=== PATIENT | female | born 1950 | race Caucasian/White ===

== ENCOUNTER 2016-06-11 13:27 | Inpatient (IN) | payer OTHER ==
[~2016-06-11] VITALS: Ht 175.3 cm; Wt 79.2 kg
[2016-06-11 12:50] VITALS: BP 147/87; PULSE 67; RESP 20; TEMP 98.3; O2SAT 97
[2016-06-11 15:50] VITALS: BP 157/87; PULSE 68; RESP 20; TEMP 98.4; O2SAT 98
[2016-06-11] MEDS ORDERED: PRED20 PO (16:06)
[2016-06-11] MEDS ORDERED: PANT40TA3 PO (16:06)
[2016-06-11] MEDS ORDERED: ZOLP5TAB3 PO (16:06)
[2016-06-11] MEDS ORDERED: SULF500T3 PO (16:06)
[2016-06-11] MEDS ORDERED: LEVO50TA4 PO (16:06)
[2016-06-11] MEDS ORDERED: PERC5TAB12 PO (16:06)
[2016-06-11] MEDS ORDERED: VALA500T PO (16:06)
[2016-06-11] MEDS ORDERED: FURO20TA PO (16:06)
--- NOTE | 2016-06-11 16:56 | HHI.HP ---
HPI Service [facility] Hospitalists Primary Care Physician Unknown Admission Diagnosis Anemia, thrombocytopenia Diagnoses: (1) Thrombocytopenia (2) Anemia (3) Crohns disease (4) ARF (acute renal failure) Travel History International Travel<30 Days: No Contact w/Intl Traveler <30 Da: No History of Present Illness 66-year-old female with a medical history significant for Crohn's disease, thrombocytopenia, hypothyroidism who was initially admitted to [facility] and transferred to [place] due to insurance issue. The patient is seen in her room. In the background, she initially presented to [facility] due to swelling of bilateral upper and lower extremities. She saw her primary care physician prior to going to the emergency room and she was given Lasix and prednisone with no improvement in her symptoms. Apparently in the emergency room at the outside hospital, she was found to have a hemoglobin of 6.5, platelet counts of 6000 and a creatinine of 1.69. The patient was admitted for treatment and was followed by hematology, nephrology and GI. She reports that her anemia is new for her. She reports a history of thrombocytopenia, there has been mention of ITP in the past. She denies any recent bleeding. She underwent a bone marrow biopsy yesterday. Currently the patient states she is feeling well otherwise. Swelling has completely resolved. She is inquiring about when she will be able to go home. Review of Systems Constitutional: DENIES: Fever, Chills Eyes: DENIES: Blurred vision, Diplopia Ears, nose, mouth, throat: DENIES: Oral lesions, Throat pain Respiratory: DENIES: Cough, Shortness of breath Cardiovascular: DENIES: Chest pain, Palpitations Gastrointestinal: COMPLAINS OF: Diarrhea (chronic), DENIES: Black stools, Bloody stools Genitourinary: DENIES: Dysuria Musculoskeletal: DENIES: Joint pain, Muscle aches Integumentary: DENIES: Rash Neurologic: DENIES: Headache, Localized weakness Psychiatric: DENIES: Mood changes Past Family Social History Past Medical History Crohn's disease Hypothyroidism Thrombocytopenia, 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 Osteoarthritis History of diverticulitis Past Surgical History Facelift Tonsillectomy Hernia repair as a child Reported Medications Reported Meds & Active Scripts Active Reported Percocet (Oxycodone-Acetaminophen) 5-325 mg Tab 1 Tab PO Q4H PRN Valacyclovir (Valacyclovir HCl) 500 Mg Tab 500 Mg PO DAILY PRN Levothyroxine (Levothyroxine Sodium) 50 Mcg Tab 50 Mcg PO DAILY Zolpidem (Zolpidem Tartrate) 5 Mg Tab 5 Mg PO HS PRN Sulfasalazine 500 Mg Tab 500 Mg PO Q6H Furosemide 20 Mg Tab 10 Mg PO DAILY Pantoprazole (Pantoprazole Sodium) 40 Mg Tab 40 Mg PO DAILY PRN Prednisone 20 Mg Tab 20 Mg PO TID Allergies: Coded Allergies: Augmentin (Verified Allergy, Intermediate, 06/11/16) Rash Cipro (Verified Allergy, Intermediate, 06/11/16) Rash Family History Patient reports mother, cousin, and brother have history of low platelets. Possible ITP. Father is 91 years old. He has a history of COPD and atrial fibrillation. Mother from complication of unknown type of abdominal cancer. Social History Patient denies using tobacco. She admits to 1-2 glasses of wine daily. She denies illicit drug use. Physical Exam Physical Exam GENERAL: This is a well-nourished, well-developed patient, in no apparent distress. SKIN: No rashes, ecchymoses or lesions. Cool and dry. HEAD: Atraumatic. Normocephalic. No temporal or scalp tenderness. EYES: Pupils equal round and reactive. Extraocular motions intact. No scleral icterus. No injection or drainage. ENT: Nose without bleeding, purulent drainage or septal hematoma. Throat without erythema, tonsillar hypertrophy or exudate. Uvula midline. Airway patent. NECK: Trachea midline. No JVD or lymphadenopathy. Supple, nontender, no meningeal signs. CARDIOVASCULAR: Regular rate and rhythm without murmurs, gallops, or rubs. RESPIRATORY: Clear to auscultation. Breath sounds equal bilaterally. No wheezes , rales, or rhonchi. GASTROINTESTINAL: Abdomen soft, non-tender, nondistended. No hepato-splenomegaly , or palpable masses. No guarding. MUSCULOSKELETAL: Extremities without clubbing, cyanosis, or edema. No joint tenderness, effusion, or edema noted. No calf tenderness. Negative Homans sign bilaterally. NEUROLOGICAL: Awake and alert. Cranial nerves II through XII intact. Motor and sensory grossly within normal limits. Five out of 5 muscle strength in all muscle groups. Normal speech. Laboratory Labs from outside hospital today. WBC 8.3, hemoglobin 9.1, hematocrit 28.5, platelets 53,000 Sodium 143, potassium 4.8, chloride 109, glucose 153, BUN 28, creatinine 1.12, GFR 52 Assessment and Plan Problem List: (1) Crohns disease ICD Code: K50.90 Status: Acute (2) Thrombocytopenia ICD Code: D69.6 Status: Acute (3) ARF (acute renal failure) ICD Code: N17.9 Status: Acute (4) Anemia ICD Code: D64.9 Status: Acute Assessment and Plan 66-year-old female admitted at an outside hospital for bilateral upper and lower extremity swelling, anemia and thrombocytopenia. Patient is transferred to [place] due to insurance. Anemia, thrombocytopenia: The patient has been transfused 2 units of PRBC and 1 unit of platelets. Her hemoglobin and platelet counts have been improving. She was followed by hematology and has been on prednisone. A bone marrow biopsy was done yesterday. - Consult hematology here for further assistance. - Request records from [facility] regarding the bone marrow biopsy result once that becomes available. Crohn's disease: GI consult reviewed. Patient previously has been on mesalamine but that was discontinued due to cost. She has been on Sulfalazine. She requested to restarted on Mesalamine here which was preferred by her GI. This appear to be stable for now. Will start mesalamine 1000mg 4 times a day. She will need to follow up outpatient with her finger waver. Acute renal failure: Patient was followed by nephrology at [facility]. [facility] [employer] was thought to be due to aggressive diuresis. Renal function has been improving. She is currently on D5 half normal saline and sodium bicarbonate. She had mild hyperkalemia this is resolved. - Will finish the bag of fluid then discontinue. Follow-up BMP in a.m. Expect continuing improvement of renal function. If not will reconsult nephrology. Hypothyroidism: Continue Synthroid GI prophylaxis: PPI. DVT PPx: SCDs Physician Certification 2 Midnight Certification Type: Admission for Inpatient Services Order for Inpatient Services The services are ordered in accordance with Medicare regulations or non- Medicare payer requirements, as applicable. In the case of services not specified as inpatient-only, they are appropriately provided as inpatient services in accordance with the 2-midnight benchmark. Estimated LOS (days): 2 days is the estimated time the patient will need to remain in the hospital, assuming treatment plan goals are met and no additional complications. Post-Hospital Plan: Home Sj Kc MD Jun 11, 2016 16:56
[2016-06-11] MEDS ORDERED: ACETAMINOPHEN 325 MG TAB PO PRN (18:30)
[2016-06-11] MEDS ORDERED: SODIUM CHLORIDE 0.9% FLUSH 5 ML FLUSH FLUSH PRN (18:30)
[2016-06-11] MEDS ORDERED: PANTOPRAZOLE SOD 40 MG DELAYED RELEASE TAB PO PRN (18:30)
[2016-06-11] MEDS ORDERED: NALOXONE HCL 0.4 MG/ML AMP IV PRN (18:30)
[2016-06-11] MEDS ORDERED: ONDANSETRON HCL 4 MG/2 ML VIAL IVP PRN (18:30)
[2016-06-11 20:00] VITALS: BP 148/86; PULSE 74; RESP 16; TEMP 97; O2SAT 95
[2016-06-11 21:11] LABS: MEAN CELL VOLUME 89.6 FL (80.0-100.0); MEAN CORPUSCULAR HEMOGLOBIN 31.3 PG (27.0-34.0); PLATELET COUNT 33 TH/MM3 (150-450); RED BLOOD COUNT 2.67 MIL/MM3 (4.00-5.30); RED CELL DISTRIBUTION WIDTH 19.4 % (11.6-17.2); WHITE BLOOD COUNT 8.5 TH/MM3 (4.0-11.0)
[2016-06-11 21:26] LABS: HEMO FLAGS AUTO DIFF
[2016-06-11 21:36] LABS: BICARBONATE 23.3 MEQ/L (21.0-32.0); CALCIUM-PROTEIN CORRECTED 8.2 MG/DL (8.5-10.1); TOTAL BILIRUBIN ADULT 0.4 MG/DL (0.2-1.0)
[2016-06-11 22:06] LABS: CORRECTED NUCLEATED RBC 1 /100 WBC (0-0); EOSINOPHILS 1 % (0-4); NEUTROPHIL # MANUAL DIFF 4.7 TH/MM3 (1.8-7.7); POLYS (SEG NEUTROPHILS) 55 % (16-70); WBC DIFF SAMPLE 100
[2016-06-11 22:07] LABS: HELMET CELLS 1+ (NORMAL); KERATOCYTES OCC (NORMAL); LDH SERUM 269 U/L (84-246); PLATELET ESTIMATE SMEAR LOW (NORMAL); PLATELET MORPHOLOGY ENLARGED (NORMAL); SCAN/DIFF FINAL DIFF MANUAL; TOTAL PROTEIN SPE 5.6 GM/DL (6.0-7.6); TRANSFERRIN IRON PROFILE 144 MG/DL (200-360)
[2016-06-11] MEDS: SODIUM CHLORIDE 0.9% FLUSH 5 ML FLUSH FLUSH SCH (22:27)
[2016-06-11] MEDS: ZOLPIDEM TARTRATE 5 MG TAB PO PRN (22:27)
[2016-06-11] MEDS: MESALAMINE 250 MG CAP PO SCH (22:27)
[2016-06-12] VITALS (7 sets, daily range): BP systolic 157–183; BP diastolic 75–96; PULSE 66–79; RESP 16–20; TEMP 97.9–99.8; O2SAT 95–100
--- NOTE | 2016-06-12 | MB ---
cc: CRISTO VITALE DATE OF : 1950 DATE OF CONSULTATION: 06/11/2016 REASON FOR CONSULTATION: Anemia and thrombocytopenia. CHIEF COMPLAINT: Generalized weakness. HISTORY OF PRESENT ILLNESS: This is a 66 year-old female with a past medical history of chronic thrombocytopenia, Crohn's disease, hypothyroidism, and osteoarthritis, who was transferred from [facility] to [place]. She had presented to the [facility] with progressive weakness and also bilateral upper and lower extremity swelling. She was found to be severely anemic with a hemoglobin of 6.5 and her platelet count was 6000. She also was in acute kidney failure with a creatinine of 1.69. The patient has a longstanding history of thrombocytopenia since she was a child. 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 There was also a diagnosis of ITP made at some point. According to the patient she has responded to platelet transfusions in the past. She does have splenomegaly. Her baseline platelet count is 15,000. She has never had any bleeding in the past. She has never required any blood transfusion in the past except recently at [facility]. She has never been anemic so the anemia is new. She does have significant history of Crohn's disease. She was previously on sulfasalazine which was stopped a few weeks ago. She takes Meloxicam on a daily basis. This was stopped on the . Her primary care physician checked her stools for blood approximately a week ago and according to the patient this was negative. She denies any constitutional B symptoms. She does not have any night sweats or fevers. She does not have any lymphadenopathy. She denies any bright red blood per rectum or melena. No hematuria. She does not have any petechiae or bruising. The patient was seen by final inspector balance wheel at [facility] and she has undergone bone marrow biopsy on 06/10/2016. I do not have the results of this biopsy. I suspect this will take several days to resolved. REVIEW OF SYSTEMS A comprehensive 14-point review of systems was completed which is negative except as described in the HPI. PAST MEDICAL HISTORY Chronic thrombocytopenia, Crohn disease, hypothyroidism, osteoarthritis, history of diverticulitis. PAST SURGICAL HISTORY Facelift, tonsillectomy, hernia repair as a child, bone marrow biopsy. MEDICATIONS 1. Percocet 5/325 one tablet p.o. q4 hours p.r.n. 2. Valacyclovir 500 mg one tablet p.o. daily. 3. Levothyroxine 50 microgram one tablet p.o. daily. 4. Zolpidem 5 milligrams one tablet p.o. q hs p.r.n. 5. Sulfasalazine 500 mg one tablet p.o. q.6 hours. 6. Furosemide 10 mg one tablet p.o. daily. 7. Pantoprazole 40 mg one tablet p.o. daily. 8. Prednisone 20 mg one tablet p.o. t.i.d. ALLERGIES She is allergic to AUGMENTIN AND CIPRO. FAMILY HISTORY: Significant for low platelets. Her brother had low platelets. Mother of unknown type of abdominal cancer. SOCIAL HISTORY: She denies smoking cigarettes. She drinks one to two glasses of wine on a daily basis. She denies any illicit drug use. PHYSICAL EXAMINATION: Vital signs: Blood pressure is 116/72, pulse is in the 70s, temperature is 97.8, respiratory rate is 14. General: Well-developed, well-nourished female in no apparent distress. HEENT: Pupils are equal, round, reactive to light. EOMI. No oral thrush. No oral lesions. Neck: Supple. No JVD, no bruits. No lymphadenopathy. Chest is clear to auscultation bilaterally. Cardiac: S1-S2 regular rhythm. Abdomen is soft, nontender, nondistended. Bowel sounds are present. Extremities: Without any edema, erythema or cyanosis. Skin: Without any petechiae, lesion or bruises. Neuro: No focal deficits. Psychiatric: Mood and affect is appropriate. Lymph node exam was completed. No supraclavicular, axillary, epitrochlear or inguinal lymphadenopathy on exam. No axillary lymphadenopathy. LABORATORY DATA: From the outside hospital today, WBC is 8.3, hemoglobin is 9.1, platelet count is 53,000. Sodium is 143, potassium 4.8, chloride 109, creatinine is 1.12. GFR is 52. 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 She was found to be severely anemic and thrombocytopenic. She was subsequently transferred to [place] due to insurance issues. 1. Severe anemia. She has required blood transfusion. She was given two units of packed red blood cells. It is unclear what type of GI workup she had at [facility]. We need to make sure that she is not having a GI bleed. I will order a stool hemoccult test while she is here. Will try to obtain records from [facility]. Apparently she was seen by a GI physician. We will obtain anemia studies. Check B12 and folate, check LDH and haptoglobin, will check a direct Capri test. I will follow up with the bone marrow biopsy results. 2. Thrombocytopenia. 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 She tells me that she was responsive to steroids in the past. She does have splenomegaly. We will obtain an abdominal ultrasound to assess her spleen, again I will review the bone marrow biopsy since that will provide us with the information whether there is an intrinsic bone marrow process that is causing her platelet counts to be low. This does not appear to be TTP or DIC. I will check her fibrinogen levels. 3. Crohn disease. She was on mesalamine which was discontinued. She was also on sulfasalazine. She is now back on mesalamine again at 1000 mg four times a day. She will follow up with her customer marketing assistant. 4. Acute renal failure. Her kidney function has improved with hydration. 5. Hypothyroidism. Check TSH levels. Continue Synthroid. Thank you for allowing me to participate in the care of this patient. If this patient remains medically stable she can be discharged home and I will follow up in my clinic. MD GLORIA Aaron/COURTNEY /7:36 PM /11:39 PM
[2016-06-12] MEDS: LEVOTHYROXINE SODIUM 50 MCG TAB PO SCH (04:43)
[2016-06-12] MEDS: PANTOPRAZOLE SOD 40 MG DELAYED RELEASE TAB PO SCH (08:21)
[2016-06-12] MEDS: FOLIC ACID 1 MG TAB PO SCH (08:21)
[2016-06-12] MEDS: SODIUM CHLORIDE 0.9% FLUSH 5 ML FLUSH FLUSH SCH ×3 (08:22→22:20)
[2016-06-12] MEDS: MESALAMINE 250 MG CAP PO SCH ×4 (08:22→20:55)
[2016-06-12 08:44] LABS: HEMATOCRIT 25.9 % (35.0-46.0); MEAN CELL VOLUME 90.3 FL (80.0-100.0); MEAN CORPUSCULAR HEMOGLOBIN 30.9 PG (27.0-34.0); MEAN CORPUSCULAR HGB CONC 34.2 % (32.0-36.0); PLATELET COUNT 23 TH/MM3 (150-450); RED BLOOD COUNT 2.86 MIL/MM3 (4.00-5.30); RED CELL DISTRIBUTION WIDTH 19.2 % (11.6-17.2); WHITE BLOOD COUNT 5.8 TH/MM3 (4.0-11.0)
[2016-06-12] MEDS ORDERED: traMADol HCL 50 MG TAB PO PRN (09:00)
[2016-06-12 09:10] LABS: ALKALINE PHOSPHATASE 47 U/L (45-117); ALT (GPT) 12 U/L (10-53); ANION GAP 8 MEQ/L (5-15); AST (GOT) 10 U/L (15-37); BICARBONATE 23.4 MEQ/L (21.0-32.0); BLOOD UREA NITROGEN 25 MG/DL (7-18); CHLORIDE 112 MEQ/L (98-107); GLOMERULAR FILTRATION RATE 48 ML/MIN (>89); SODIUM (NA) 143 MEQ/L (136-145); TOTAL BILIRUBIN ADULT 0.5 MG/DL (0.2-1.0)
[2016-06-12 09:32] LABS: HEMO FLAGS AUTO DIFF
[2016-06-12 09:35] LABS: BANDS 3 % (0-6); BASOPHILS 1 % (0-2); EOSINOPHILS 1 % (0-4); NEUTROPHIL # MANUAL DIFF 2.2 TH/MM3 (1.8-7.7); PLATELET ESTIMATE SMEAR LOW (NORMAL); PLATELET MORPHOLOGY ENLARGED (NORMAL); POLYS (SEG NEUTROPHILS) 35 % (16-70); WBC DIFF SAMPLE 100
[2016-06-12 09:36] LABS: HELMET CELLS OCC (NORMAL); KERATOCYTES OCC (NORMAL)
[2016-06-12 09:37] LABS: SCAN/DIFF FINAL DIFF MANUAL
[2016-06-12] MEDS: cloNIDine HCL 0.1 MG TAB PO PRN (12:20)
--- NOTE | 2016-06-12 12:48 | HHI.DS ---
Discharge Summary Admission Date Jun 11, 2016 at 13:27 Discharge Date: Jun 12, 2016 Admitting Diagnosis Anemia, thrombocytopenia (1) Crohns disease ICD Code: K50.90 (2) Thrombocytopenia ICD Code: D69.6 (3) ARF (acute renal failure) ICD Code: N17.9 (4) Anemia ICD Code: D64.9 Procedures None in this Hospital but had bone marrow biopsy prior to coming to [place] Brief History - From Admission 66-year-old female with a medical history significant for Crohn's disease, thrombocytopenia, hypothyroidism who was initially admitted to [facility] and transferred to [place] due to insurance issue. The patient is seen in her room. In the background, she initially presented to [facility] due to swelling of bilateral upper and lower extremities. She saw her primary care physician prior to going to the emergency room and she was given Lasix and prednisone with no improvement in her symptoms. Apparently in the emergency room at the outside hospital, she was found to have a hemoglobin of 6.5, platelet counts of 6000 and a creatinine of 1.69. The patient was admitted for treatment and was followed by hematology, nephrology and GI. She reports that her anemia is new for her. She reports a history of thrombocytopenia, there has been mention of ITP in the past. She denies any recent bleeding. She underwent a bone marrow biopsy yesterday. Currently the patient states she is feeling well otherwise. Swelling has completely resolved. She is inquiring about when she will be able to go home. CBC/BMP: 06/12/16 0810 06/12/16 0810 Significant Findings Laboratory Tests Test 06/11/16 06/12/16 20:50 08:10 Red Blood Count 2.67 MIL/MM3 2.86 MIL/MM3 (4.00-5.30) (4.00-5.30) Hemoglobin 8.4 GM/DL 8.8 GM/DL (11.6-15.3) (11.6-15.3) Hematocrit 24.0 % 25.9 % (35.0-46.0) (35.0-46.0) Red Cell Distribution Width 19.4 % 19.2 % (11.6-17.2) (11.6-17.2) Platelet Count 33 TH/MM3 23 TH/MM3 (150-450) (150-450) Monocytes % 23 % (0-8) 28 % (0-8) Nucleated Red Blood Cells 1 /100 WBC (0-0) Platelet Estimate LOW (NORMAL) LOW (NORMAL) Platelet Morphology Comment ENLARGED ENLARGED (NORMAL) (NORMAL) Helmet Cells 1+ (NORMAL) Keratocytes OCC (NORMAL) OCC (NORMAL) Chloride Level 112 MEQ/L 112 MEQ/L (98-107) (98-107) Blood Urea Nitrogen 27 MG/DL (7-18) 25 MG/DL (7-18) Creatinine 1.36 MG/DL 1.13 MG/DL (0.50-1.00) (0.50-1.00) Estimat Glomerular Filtration 39 ML/MIN (>89) 48 ML/MIN (>89) Rate Random Glucose 112 MG/DL (74-106) Calcium Level 7.4 MG/DL 7.6 MG/DL (8.5-10.1) (8.5-10.1) Protein Corrected Calcium 8.2 MG/DL (8.5-10.1) Iron Level 46 MCG/DL (50-170) Total Iron Binding Capacity 202 MCG/DL (250-450) Transferrin 144 MG/DL (213-418) Aspartate Amino Transf 11 U/L (15-37) 10 U/L (15-37) (AST/SGOT) Lactate Dehydrogenase 269 U/L (84-246) Total Protein 5.6 GM/DL 5.6 GM/DL (6.0-7.6) (6.4-8.2) Albumin 2.4 GM/DL 2.3 GM/DL (3.4-5.0) (3.4-5.0) Vitamin B12 Level 1113 PG/ML (193-986) Haptoglobin 25 MG/DL (30-200) Sj Kc MD Jun 12, 2016 12:48
[2016-06-12] MEDS ORDERED: ULTR50TA5 PO (12:59)
[2016-06-12] MEDS ORDERED: MESA250 PO (12:59)
[2016-06-12] MEDS ORDERED: PANT40TA3 PO ×2 (12:59)
[2016-06-12] MEDS ORDERED: CLON.1 PO (13:00)
--- NOTE | 2016-06-12 13:00 | RADRPT ---
EXAM DATE/TIME: 06/12/2016 09:51 [place] COMPARISON: No previous studies available for comparison. INDICATIONS : Splenomegaly. Thrombocytopenia. MEDICAL HISTORY : Hypertension. Arthritis. Crohn disease. Inflammatory bowel disease. Renal failure. Anemia. Thromboc ytopenia. SURGICAL HISTORY : Tonsillectomy. Hiatal hernia repair. Face lift. ENCOUNTER: Initial ACUITY: 1 day PAIN SCORE: 4/10 LOCATION: Bilateral upper quadrant MEASUREMENTS: LIVER: 19.7 cm length COMMON DUCT: 6 mm RIGHT KIDNEY: 13.0 x 6.6 x 5.7 cm LEFT KIDNEY: 13.8 x 6.3 x 6.3 cm SPLEEN: 16.8 x 15.3 x 7.1 cm length AORTA: 2.2cm maximal FINDINGS: LIVER: Normal echotexture without focal lesion or ductal dilatation. COMMON DUCT: No intraluminal mass or stone visualized. GALLBLADDER: Contains no stones, demonstrates no wall thickening or pericholecystic fluid. There is sludge within the gallbladder. PANCREAS: The visualized portions are within normal limits. RIGHT KIDNEY: No hydronephrosis, stone or mass.There is an anechoic avascular lesion representing a simple cyst in the lower pole collecting system measuring up to 2.2 cm. There is trace fluid in Morison's pouch. LEFT KIDNEY: There is mild left hydronephrosis. No mass or stone is visualized. SPLEEN: There is a mildly echogenic mass measuring 5.0 x 4.8 cm in the central spleen. Centrally the appearan ce of cystic and overall demonstrates no increased blood flow. There is trace perisplenic free fluid. AORTA: Non aneurysmal. IVC: Within normal limits. Small bilateral pleural effusions are visualized. CONCLUSION: 1. Splenomegaly. Additionally, there is a partially solid and cystic appearing mass in the central sp rob measuring up to 5 cm. Differential diagnostic considerations are broad. Suggest correlating with any prior imaging studies that could determine chronicity of this finding. Although most incidentall y detected splenic lesions are benign, given the splenomegaly and the appearance is ideally should be further characterized with MRI with and without intravenous contrast at some point if not already pe rformed. 2. Small bilateral pleural pleural effusions and trace ascites in the upper abdomen. 3. Mild left hydronephrosis from uncertain etiology. Charli Roman MD on June 12, 2016 at 12:54 Board Certified Radiologist. This report was verified electronically.
--- NOTE | 2016-06-12 13:17 | PD.ONC.PN ---
Objective Data Date Time Temp Pulse Resp B/P Pulse Ox O2 Delivery O2 Flow Rate FiO2 06/12/16 11:50 99.0 79 20 183/96 97 06/12/16 07:50 98.8 74 20 159/80 98 06/12/16 04:00 97.9 66 18 166/84 100 06/12/16 01:59 16 06/12/16 00:00 98.5 76 18 157/75 95 06/11/16 20:00 97.0 74 16 148/86 95 06/11/16 15:50 98.4 68 20 157/87 98 06/12/16 06/12/16 06/12/16 07:00 15:00 23:00 Intake Total 240 ml Balance 240 ml Result Diagram: 06/12/16 0810 06/12/16 0810 Laboratory Results Laboratory Tests Test 06/11/16 06/11/16 06/12/16 20:50 20:55 08:10 White Blood Count 8.5 TH/MM3 5.8 TH/MM3 Red Blood Count 2.67 MIL/MM3 2.86 MIL/MM3 Hemoglobin 8.4 GM/DL 8.8 GM/DL Hematocrit 24.0 % 25.9 % Mean Corpuscular Volume 89.6 FL 90.3 FL Mean Corpuscular Hemoglobin 31.3 PG 30.9 PG Mean Corpuscular Hemoglobin 35.0 % 34.2 % Concent Red Cell Distribution Width 19.4 % 19.2 % Platelet Count 33 TH/MM3 23 TH/MM3 Mean Platelet Volume 8.7 FL 8.1 FL Neutrophils (%) (Auto) % % Lymphocytes (%) (Auto) % % Monocytes (%) (Auto) % % Eosinophils (%) (Auto) % % Basophils (%) (Auto) % % Neutrophils # (Auto) TH/MM3 TH/MM3 Lymphocytes # (Auto) TH/MM3 TH/MM3 Monocytes # (Auto) TH/MM3 TH/MM3 Eosinophils # (Auto) TH/MM3 TH/MM3 Basophils # (Auto) TH/MM3 TH/MM3 CBC Comment AUTO DIFF AUTO DIFF Differential Total Cells 100 100 Counted Neutrophils % (Manual) 55 % 35 % Lymphocytes % 21 % 32 % Monocytes % 23 % 28 % Eosinophils % 1 % 1 % Neutrophils # (Manual) 4.7 TH/MM3 2.2 TH/MM3 Nucleated Red Blood Cells 1 /100 WBC Differential Comment FINAL DIFF FINAL DIFF MANUAL MANUAL Platelet Estimate LOW LOW Platelet Morphology Comment ENLARGED ENLARGED Helmet Cells 1+ OCC Keratocytes OCC OCC Fibrinogen 227 mg/dL Sodium Level 142 MEQ/L 143 MEQ/L Potassium Level 4.0 MEQ/L 4.0 MEQ/L Chloride Level 112 MEQ/L 112 MEQ/L Carbon Dioxide Level 23.3 MEQ/L 23.4 MEQ/L Anion Gap 7 MEQ/L 8 MEQ/L Blood Urea Nitrogen 27 MG/DL 25 MG/DL Creatinine 1.36 MG/DL 1.13 MG/DL Estimat Glomerular Filtration 39 ML/MIN 48 ML/MIN Rate Random Glucose 112 MG/DL 85 MG/DL Calcium Level 7.4 MG/DL 7.6 MG/DL Protein Corrected Calcium 8.2 MG/DL Iron Level 46 MCG/DL Total Iron Binding Capacity 202 MCG/DL Percent Iron Saturation 22.8 % Transferrin 144 MG/DL Total Bilirubin 0.4 MG/DL 0.5 MG/DL Aspartate Amino Transf 11 U/L 10 U/L (AST/SGOT) Alanine Aminotransferase 14 U/L 12 U/L (ALT/SGPT) Alkaline Phosphatase 56 U/L 47 U/L Lactate Dehydrogenase 269 U/L Total Protein 5.6 GM/DL 5.6 GM/DL Albumin 2.4 GM/DL 2.3 GM/DL Vitamin B12 Level 1113 PG/ML Thyroid Stimulating Hormone 3.270 uIU/ML 3rd Gen Blood Type A POSITIVE Direct Antiglobulin Test STRONGLY (Capri) POSITIVE Haptoglobin 25 MG/DL Antibody Identification PANAGGLUTININ Band Neutrophils % 3 % Basophils % 1 % Blood Smear Pathologist Review Imaging Studies Last 24 hours Impressions Abdomen Ultrasound 06/12/16 0000 Signed Impressions: Service Date/Time: May 09:51 - CONCLUSION: 1. Splenomegaly. Additionally, there is a partially solid and cystic appearing mass in the central spleen measuring up to 5 cm. Differential diagnostic considerations are broad. Suggest correlating with any prior imaging studies that could determine chronicity of this finding. Although most incidentally detected splenic lesions are benign, given the splenomegaly and the appearance is ideally should be further characterized with MRI with and without intravenous contrast at some point if not already performed. 2. Small bilateral pleural pleural effusions and trace ascites in the upper abdomen. 3. Mild left hydronephrosis from uncertain etiology. Charli Roman MD Administered Medications Medications (Trade) Dose Ordered Sig/Angela Route PRN Reason Start Time Stop Time Status Last Admin Dose Admin Levothyroxine Sodium (Synthroid) 50 mcg DAILY@0600 PO 06/12/16 06:00 06/12/16 04:43 Folic Acid (Folate) 1 mg DAILY PO 06/12/16 09:00 06/12/16 08:21 Pantoprazole Sodium (Protonix) 40 mg DAILY PO 06/12/16 09:00 06/12/16 08:21 Mesalamine (Pentasa Sr) 1,000 mg QID PO 06/11/16 21:00 06/12/16 12:20 IV Flush (NS Flush) 2 ml BID FLUSH 06/11/16 21:00 06/12/16 08:22 Zolpidem Tartrate (Ambien) 5 mg HS PRN PO INSOMNIA 06/11/16 18:30 06/11/16 22:27 Tramadol HCl (Ultram) 50 mg Q12H PRN PO PAIN GREATER THAN 5 06/12/16 09:00 06/12/16 09:00 Clonidine (Catapres) 0.1 mg Q6H PRN PO SBP> OR = 180, DBP> OR = 100 06/12/16 09:00 06/12/16 12:20 Objective Remarks GENERAL: Well-nourished, well-developed patient. SKIN: Warm and dry. HEAD: Normocephalic. EYES: No scleral icterus. No injection or drainage. NECK: Supple, trachea midline. No JVD or lymphadenopathy. LYMPHATIC: No adenopathy. CARDIOVASCULAR: Regular rate and rhythm without murmurs. RESPIRATORY: Breath sounds equal bilaterally. No accessory muscle use. GASTROINTESTINAL: Abdomen soft, non-tender, nondistended. EXTREMITIES: No cyanosis, or edema. MUSCULOSKELETAL: Adequate muscle tone. NEUROLOGICAL: No obvious focal deficit. Awake, alert, and oriented x3. PSYCHIATRIC: Appropriate mood and affect; insight and judgment normal. Farrukh Eagle MD Jun 12, 2016 13:17
[2016-06-12] MEDS ORDERED: methylPREDNISolone SOD SUCC 125 MG/2 ML VIAL IV PUSH ONE (13:30)
--- NOTE | 2016-06-12 13:34 | HHI.PR ---
Subjective Remarks Patient reports that she is feeling great. She inquired about when she can go home. No bleeding. She has some discomfort over the left upper back. Tramadol help. Objective Vitals Vital Signs Date Time Temp Pulse Resp B/P Pulse Ox O2 Delivery O2 Flow Rate FiO2 06/12/16 11:50 99.0 79 20 183/96 97 06/12/16 07:50 98.8 74 20 159/80 98 06/12/16 04:00 97.9 66 18 166/84 100 06/12/16 01:59 16 06/12/16 00:00 98.5 76 18 157/75 95 06/11/16 20:00 97.0 74 16 148/86 95 06/11/16 15:50 98.4 68 20 157/87 98 I/O 06/11/16 06/11/16 06/11/16 06/12/16 06/12/16 06/12/16 07:00 15:00 23:00 07:00 15:00 23:00 Intake Total 360 ml 240 ml Balance 360 ml 240 ml Intake Oral 360 ml 240 ml # Voids 1 2 # Bowel Movements 0 0 Result Diagram: 06/12/16 0810 06/12/16 0810 Imaging Last Impressions Abdomen Ultrasound 06/12/16 0000 Signed Impressions: Service Date/Time: May 09:51 - CONCLUSION: 1. Splenomegaly. Additionally, there is a partially solid and cystic appearing mass in the central spleen measuring up to 5 cm. Differential diagnostic considerations are broad. Suggest correlating with any prior imaging studies that could determine chronicity of this finding. Although most incidentally detected splenic lesions are benign, given the splenomegaly and the appearance is ideally should be further characterized with MRI with and without intravenous contrast at some point if not already performed. 2. Small bilateral pleural pleural effusions and trace ascites in the upper abdomen. 3. Mild left hydronephrosis from uncertain etiology. Charli Roman MD Objective Remarks GENERAL: This is a well-nourished, well-developed patient, in no apparent distress. CARDIOVASCULAR: Normal rate and regular rhythm without murmurs, gallops, or rubs. RESPIRATORY: Good respiratory efforts. Breath sounds equal and clear to auscultation bilaterally. GASTROINTESTINAL: Abdomen soft, non-tender, non-distended. Normal active bowel sounds MUSCULOSKELETAL: Extremities without cyanosis, or edema. NEURO: Alert & Oriented x4 to person, place, time, situation. Moves all ext x4 PSYCH: Appropriate mood and affect. Procedures None in this Hospital but had bone marrow biopsy prior to coming to [place] A/P Problem List: (1) Crohns disease ICD Code: K50.90 Status: Acute (2) Thrombocytopenia ICD Code: D69.6 Status: Acute (3) ARF (acute renal failure) ICD Code: N17.9 Status: Acute (4) Anemia ICD Code: D64.9 Status: Acute Assessment and Plan 66-year-old female initially admitted at an outside hospital for bilateral upper and lower extremity swelling, anemia and thrombocytopenia. Patient is transferred to [place] due to insurance. Anemia, thrombocytopenia: The patient has been transfused 2 units of PRBC and 1 unit of platelets. Her hemoglobin improved but her platelet count or decreasing again. She was followed by hematology and has been on prednisone. A bone marrow biopsy was done on 06/10/16 -Appreciate suction operator, Dr. Eagle following. Yousif positive and LDH is elevated. Concern for a hemolytic process. Patient will be restarted on steroid per hematology. She was on prednisone 20 mg twice daily at the outside hospital. Splenomegaly: May be contributing to the findings above. Abdominal ultrasound here revealed a 5 cm cystic mass. This was also identified at the outside hospital and MRI or CT was recommended. CT at the outside hospital did not comment much on the spleen. Therefore we will obtain an MRI to better characterize this. Crohn's disease: GI consult reviewed. Patient previously has been on mesalamine but that was discontinued due to cost. She has been on Sulfalazine. She requested to restarted on Mesalamine here which was preferred by her GI. This appear to be stable for now. Continue mesalamine 1000mg 4 times a day. Hemoccult from the outside hospital has been negative. This has been reordered here to ensure no GI bleeding. 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 Acute renal failure: Patient was followed by nephrology at [facility]. MITRA was thought to be due to aggressive diuresis. Renal function has been improving. Follow-up BMP in a.m. Expect continuing improvement of renal function. If not will reconsult nephrology. Hypothyroidism: Continue Synthroid GI prophylaxis: PPI. DVT PPx: SCDs Rimpel,Ricardy MD Jun 12, 2016 13:34
--- NOTE | 2016-06-12 13:43 | PD.ONC.PN ---
Subjective Subjective Remarks Afebrile overnight. Patient resting comfortably without complaint. No bleeding or oozing. Objective Data Date Time Temp Pulse Resp B/P Pulse Ox O2 Delivery O2 Flow Rate FiO2 06/12/16 11:50 99.0 79 20 183/96 97 06/12/16 07:50 98.8 74 20 159/80 98 06/12/16 04:00 97.9 66 18 166/84 100 06/12/16 01:59 16 06/12/16 00:00 98.5 76 18 157/75 95 06/11/16 20:00 97.0 74 16 148/86 95 06/11/16 15:50 98.4 68 20 157/87 98 06/12/16 06/12/16 06/12/16 07:00 15:00 23:00 Intake Total 240 ml Balance 240 ml Result Diagram: 06/12/16 0810 06/12/16 0810 Laboratory Results Laboratory Tests Test 06/11/16 06/11/16 06/12/16 20:50 20:55 08:10 White Blood Count 8.5 TH/MM3 5.8 TH/MM3 Red Blood Count 2.67 MIL/MM3 2.86 MIL/MM3 Hemoglobin 8.4 GM/DL 8.8 GM/DL Hematocrit 24.0 % 25.9 % Mean Corpuscular Volume 89.6 FL 90.3 FL Mean Corpuscular Hemoglobin 31.3 PG 30.9 PG Mean Corpuscular Hemoglobin 35.0 % 34.2 % Concent Red Cell Distribution Width 19.4 % 19.2 % Platelet Count 33 TH/MM3 23 TH/MM3 Mean Platelet Volume 8.7 FL 8.1 FL Neutrophils (%) (Auto) % % Lymphocytes (%) (Auto) % % Monocytes (%) (Auto) % % Eosinophils (%) (Auto) % % Basophils (%) (Auto) % % Neutrophils # (Auto) TH/MM3 TH/MM3 Lymphocytes # (Auto) TH/MM3 TH/MM3 Monocytes # (Auto) TH/MM3 TH/MM3 Eosinophils # (Auto) TH/MM3 TH/MM3 Basophils # (Auto) TH/MM3 TH/MM3 CBC Comment AUTO DIFF AUTO DIFF Differential Total Cells 100 100 Counted Neutrophils % (Manual) 55 % 35 % Lymphocytes % 21 % 32 % Monocytes % 23 % 28 % Eosinophils % 1 % 1 % Neutrophils # (Manual) 4.7 TH/MM3 2.2 TH/MM3 Nucleated Red Blood Cells 1 /100 WBC Differential Comment FINAL DIFF FINAL DIFF MANUAL MANUAL Platelet Estimate LOW LOW Platelet Morphology Comment ENLARGED ENLARGED Helmet Cells 1+ OCC Keratocytes OCC OCC Fibrinogen 227 mg/dL Sodium Level 142 MEQ/L 143 MEQ/L Potassium Level 4.0 MEQ/L 4.0 MEQ/L Chloride Level 112 MEQ/L 112 MEQ/L Carbon Dioxide Level 23.3 MEQ/L 23.4 MEQ/L Anion Gap 7 MEQ/L 8 MEQ/L Blood Urea Nitrogen 27 MG/DL 25 MG/DL Creatinine 1.36 MG/DL 1.13 MG/DL Estimat Glomerular Filtration 39 ML/MIN 48 ML/MIN Rate Random Glucose 112 MG/DL 85 MG/DL Calcium Level 7.4 MG/DL 7.6 MG/DL Protein Corrected Calcium 8.2 MG/DL Iron Level 46 MCG/DL Total Iron Binding Capacity 202 MCG/DL Percent Iron Saturation 22.8 % Transferrin 144 MG/DL Total Bilirubin 0.4 MG/DL 0.5 MG/DL Aspartate Amino Transf 11 U/L 10 U/L (AST/SGOT) Alanine Aminotransferase 14 U/L 12 U/L (ALT/SGPT) Alkaline Phosphatase 56 U/L 47 U/L Lactate Dehydrogenase 269 U/L Total Protein 5.6 GM/DL 5.6 GM/DL Albumin 2.4 GM/DL 2.3 GM/DL Vitamin B12 Level 1113 PG/ML Thyroid Stimulating Hormone 3.270 uIU/ML 3rd Gen Blood Type A POSITIVE Direct Antiglobulin Test STRONGLY (Capri) POSITIVE Haptoglobin 25 MG/DL Antibody Identification PANAGGLUTININ Band Neutrophils % 3 % Basophils % 1 % Blood Smear Pathologist Review Imaging Studies Last 24 hours Impressions Abdomen Ultrasound 06/12/16 0000 Signed Impressions: Service Date/Time: May 09:51 - CONCLUSION: 1. Splenomegaly. Additionally, there is a partially solid and cystic appearing mass in the central spleen measuring up to 5 cm. Differential diagnostic considerations are broad. Suggest correlating with any prior imaging studies that could determine chronicity of this finding. Although most incidentally detected splenic lesions are benign, given the splenomegaly and the appearance is ideally should be further characterized with MRI with and without intravenous contrast at some point if not already performed. 2. Small bilateral pleural pleural effusions and trace ascites in the upper abdomen. 3. Mild left hydronephrosis from uncertain etiology. Charli Roman MD Administered Medications Medications (Trade) Dose Ordered Sig/Angela Route PRN Reason Start Time Stop Time Status Last Admin Dose Admin Levothyroxine Sodium (Synthroid) 50 mcg DAILY@0600 PO 06/12/16 06:00 06/12/16 04:43 Folic Acid (Folate) 1 mg DAILY PO 06/12/16 09:00 06/12/16 08:21 Pantoprazole Sodium (Protonix) 40 mg DAILY PO 06/12/16 09:00 06/12/16 08:21 Mesalamine (Pentasa Sr) 1,000 mg QID PO 06/11/16 21:00 06/12/16 12:20 IV Flush (NS Flush) 2 ml BID FLUSH 06/11/16 21:00 06/12/16 08:22 Zolpidem Tartrate (Ambien) 5 mg HS PRN PO INSOMNIA 06/11/16 18:30 06/11/16 22:27 Tramadol HCl (Ultram) 50 mg Q12H PRN PO PAIN GREATER THAN 5 06/12/16 09:00 06/12/16 09:00 Clonidine (Catapres) 0.1 mg Q6H PRN PO SBP> OR = 180, DBP> OR = 100 06/12/16 09:00 06/12/16 12:20 Objective Remarks GENERAL: Pleasant middle aged female, lying in bed in nad. SKIN: Warm and dry. HEAD: Normocephalic. EYES: No injection or drainage. NECK: Supple, trachea midline. CARDIOVASCULAR: Regular rate and rhythm RESPIRATORY: Breath sounds equal bilaterally. No accessory muscle use. GASTROINTESTINAL: Abdomen soft, non-tender, nondistended. EXTREMITIES: No cyanosis NEUROLOGICAL: No obvious focal deficit. Awake, alert, and oriented x3. 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 She was found to be severely anemic and thrombocytopenic. She was subsequently transferred to [place] due to insurance issues. Plan 1. monitor CBC 2. supportive care. 3. await records from [facility] Geno Gomes Jun 12, 2016 13:43 Farrukh Eagle MD Jun 12, 2016 20:35
[2016-06-12] MEDS ORDERED: LORazepam 1 MG TAB PO PRN (16:30)
[2016-06-12] MEDS ORDERED: sulfaSALAzine 500 MG TAB PO SCH (18:00)
[2016-06-12 22:16] LABS: ALBUMIN SPE 2.86 GM/DL (3.50-5.00); ALPHA 1 GLOBULIN 0.24 GM/DL (0.11-0.29); ALPHA 2 GLOBULIN 0.55 GM/DL (0.22-1.00); BETA GLOBULINS (SPE) 0.53 GM/DL (0.53-1.03)
[2016-06-13] VITALS: BP 140/79; PULSE 66; RESP 16; TEMP 97.4; O2SAT 96
[2016-06-13] MEDS: ZOLPIDEM TARTRATE 5 MG TAB PO PRN ×2 (00:14→23:54)
[2016-06-13] MEDS: LEVOTHYROXINE SODIUM 50 MCG TAB PO SCH (06:03)
[2016-06-13] MEDS: cloNIDine HCL 0.1 MG TAB PO PRN (06:36)
[2016-06-13 06:40] VITALS: BP 166/93; PULSE 62; RESP 16; TEMP 97; O2SAT 96
[2016-06-13 07:02] LABS: HEMATOCRIT 24.2 % (35.0-46.0); MEAN CORPUSCULAR HEMOGLOBIN 30.5 PG (27.0-34.0); MEAN CORPUSCULAR HGB CONC 33.9 % (32.0-36.0); RED BLOOD COUNT 2.69 MIL/MM3 (4.00-5.30); RED CELL DISTRIBUTION WIDTH 18.3 % (11.6-17.2); WHITE BLOOD COUNT 6.5 TH/MM3 (4.0-11.0)
[2016-06-13 07:20] LABS: HEMO FLAGS AUTO DIFF
[2016-06-13 07:23] LABS: PLATELET COUNT 14 TH/MM3 (150-450)
[2016-06-13 07:29] LABS: APTT (PATIENT) 27.5 SEC (24.3-30.1); PROTHROMBIN TIME - PATIENT 11.3 SEC (9.8-11.6)
[2016-06-13 07:37] LABS: BICARBONATE 22.6 MEQ/L (21.0-32.0); INDIRECT BILIRUBIN 0.3 MG/DL (0.0-0.8); POTASSIUM 4.1 MEQ/L (3.5-5.1); TOTAL BILIRUBIN ADULT 0.4 MG/DL (0.2-1.0)
[2016-06-13 08:00] VITALS: BP 138/74; PULSE 66; RESP 18; TEMP 97.1; O2SAT 94
[2016-06-13] MEDS: PANTOPRAZOLE SOD 40 MG DELAYED RELEASE TAB PO SCH (08:41)
[2016-06-13] MEDS: MESALAMINE 250 MG CAP PO SCH ×4 (08:41→20:46)
[2016-06-13] MEDS: FOLIC ACID 1 MG TAB PO SCH (08:41)
[2016-06-13 08:50] LABS: BASOPHILS 5 % (0-2); NEUTROPHIL # MANUAL DIFF 2.9 TH/MM3 (1.8-7.7); POLYS (SEG NEUTROPHILS) 45 % (16-70); WBC DIFF SAMPLE 100
[2016-06-13 08:54] LABS: HELMET CELLS OCC (NORMAL); KERATOCYTES 1+ (NORMAL); PLATELET ESTIMATE SMEAR LOW (NORMAL); PLATELET MORPHOLOGY ENLARGED (NORMAL); SCAN/DIFF FINAL DIFF MANUAL
--- NOTE | 2016-06-13 09:28 | HHI.PR ---
Subjective Remarks Patient reports that she is feeling okay. Will have MRI today. Pain is controlled. Platelets down to 14,000. No bleeding. Objective Vitals Vital Signs Date Time Temp Pulse Resp B/P Pulse Ox O2 Delivery O2 Flow Rate FiO2 06/13/16 08:00 97.1 66 18 138/74 94 06/13/16 06:40 97.0 62 16 166/93 96 06/13/16 00:00 97.4 66 16 140/79 96 06/12/16 20:00 98.6 78 16 157/83 95 06/12/16 19:28 166/78 06/12/16 15:50 99.8 76 20 167/90 95 06/12/16 11:50 99.0 79 20 183/96 97 I/O 06/12/16 06/12/16 06/12/16 06/13/16 06/13/16 06/13/16 07:00 15:00 23:00 07:00 15:00 23:00 Intake Total 240 ml 480 ml 400 ml 450 ml Balance 240 ml 480 ml 400 ml 450 ml Intake Oral 240 ml 480 ml 400 ml 450 ml # Voids 2 6 2 2 # Bowel Movements 0 1 0 0 Result Diagram: 06/13/1620 06/13/16 0620 Objective Remarks GENERAL: This is a well-nourished, well-developed patient, in no apparent distress. CARDIOVASCULAR: Normal rate and regular rhythm without murmurs, gallops, or rubs. RESPIRATORY: Good respiratory efforts. Breath sounds equal and clear to auscultation bilaterally. GASTROINTESTINAL: Abdomen soft, non-tender, non-distended. Normal active bowel sounds MUSCULOSKELETAL: Extremities without cyanosis, or edema. NEURO: Alert & Oriented x4 to person, place, time, situation. Moves all ext x4 PSYCH: Appropriate mood and affect. Procedures None in this Hospital but had bone marrow biopsy prior to coming to [place] A/P Problem List: (1) Crohns disease ICD Code: K50.90 Status: Acute (2) Thrombocytopenia ICD Code: D69.6 Status: Acute (3) ARF (acute renal failure) ICD Code: N17.9 Status: Acute (4) Anemia ICD Code: D64.9 Status: Acute Assessment and Plan 66-year-old female initially admitted at an outside hospital for bilateral upper and lower extremity swelling, anemia and thrombocytopenia. Patient is transferred to [place] due to insurance. Anemia, thrombocytopenia: The patient has been transfused 2 units of PRBC and 1 unit of platelets. Her hemoglobin improved but her platelet count or decreasing again. She was followed by hematology and has been on prednisone. A bone marrow biopsy was done on 06/10/16 -Appreciate fiscal specialist, Dr. Eagle following. Yousif positive and LDH is elevated. Concern for a hemolytic process. Patient restarted on steroid per hematology. - H&H stable today but platelets decreased to 14,000. Further plans per hematology. Splenomegaly: May be contributing to the findings above. Abdominal ultrasound here revealed a 5 cm cystic mass. This was also identified at the outside hospital and MRI or CT was recommended. CT at the outside hospital did not comment much on the spleen. MRI pending. Crohn's disease: GI consult reviewed. Patient previously has been on mesalamine but that was discontinued due to cost. She has been on Sulfalazine. She requested to restarted on Mesalamine here which was preferred by her GI. This appear to be stable for now. Continue mesalamine 1000mg 4 times a day. Hemoccult from the outside hospital has been negative. This has been reordered here to ensure no GI bleeding. 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 Acute renal failure: Patient was followed by nephrology at [facility]. MITRA was thought to be due to aggressive diuresis. Renal function has been improving. Better today. Follow-up BMP in a.m. Expect continuing improvement of renal function. Hypothyroidism: Continue Synthroid GI prophylaxis: PPI. DVT PPx: Sj Schumacher MD Jun 13, 2016 09:28
[2016-06-13] MEDS ORDERED: GADODIAMIDE PF 287 MG/ML 20 ML VIAL (for RAD MRI) IV ONE (10:06)
[2016-06-13] MEDS: predniSONE 50 MG TAB PO SCH ×2 (10:22→20:46)
--- NOTE | 2016-06-13 10:48 | RADRPT ---
EXAM DATE/TIME: 06/13/2016 09:43 [place] COMPARISON: US ABDOMEN - COMPLETE, June 12, 2016, 9:51. INDICATIONS : Splenic mass CONTRAST: 18 cc Omniscan (gadodiamide) IV MEDICAL HISTORY : Crohn's disease. Hypothyroidism. Osteoarthritis. SURGICAL HISTORY : Hernia repair. ENCOUNTER: Initial ACUITY: 1 day PAIN SCORE: 0/10 LOCATION: TECHNIQUE: Multiplanar, multisequence magnetic resonance imaging of the abdomen was performed without and with i ntravenous contrast. FINDINGS: LIVER: Normal size with normal signal intensity. No lesion is identified. Portal vein is within normal limi ts. There is a 5 mm hepatic cyst in the left lobe of the liver. BILIARY: There is no intra- or extra-hepatic biliary ductal dilatation. Gallbladder contains no stones. There is some sludge in the gallbladder. SPLEEN: The spleen is mildly enlarged at 13.3 cm. There is a focal hyperdense lesion in the posterior spleen measuring 3.8 x 2.4 cm. This demonstrates slow progressive enhancement on the postcontrast images karuna racteristic of a hemangioma. The rest of the spleen is unremarkable. PANCREAS: Within normal limits. ADRENALS: Within normal limits. KIDNEYS: Normal size and signal intensity. There is no hydronephrosis or mass. There are bilateral parapelvic cysts. OTHER: Aorta is nonaneurysmal. There is no lymphadenopathy. There is diffuse edema throughout the body wall characteristic of anasarca. CONCLUSION: 1. 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 2. 5 mm hepatic cyst left lobe liver. 3. Small amount of sludge in the gallbladder. 4. Bilateral parapelvic renal cysts. 5. Diffuse anasarca. Bharat Damon MD on June 13, 2016 at 10:40 Board Certified Radiologist. This report was verified electronically.
[2016-06-13 12:00] VITALS: BP 159/92; PULSE 88; RESP 18; TEMP 97.7; O2SAT 97
--- NOTE | 2016-06-13 14:28 | PD.ONC.PN ---
Subjective Subjective Remarks Afebrile overnight. Pt walking around in room on approach in no distress. She has no complaints. No bleeding. Objective Data Date Time Temp Pulse Resp B/P Pulse Ox O2 Delivery O2 Flow Rate FiO2 06/13/16 12:00 97.7 88 18 159/92 97 06/13/16 08:00 97.1 66 18 138/74 94 06/13/16 06:40 97.0 62 16 166/93 96 06/13/16 00:00 97.4 66 16 140/79 96 06/12/16 20:00 98.6 78 16 157/83 95 06/12/16 19:28 166/78 06/12/16 15:50 99.8 76 20 167/90 95 06/13/16 06/13/16 06/13/16 07:00 15:00 23:00 Intake Total 450 ml Balance 450 ml Result Diagram: 06/13/1620 06/13/16 0620 Laboratory Results Laboratory Tests Test 06/13/16 06:20 White Blood Count 6.5 TH/MM3 Red Blood Count 2.69 MIL/MM3 Hemoglobin 8.2 GM/DL Hematocrit 24.2 % Mean Corpuscular Volume 90.0 FL Mean Corpuscular Hemoglobin 30.5 PG Mean Corpuscular Hemoglobin 33.9 % Concent Red Cell Distribution Width 18.3 % Platelet Count 14 TH/MM3 Mean Platelet Volume 9.0 FL Neutrophils (%) (Auto) % Lymphocytes (%) (Auto) % Monocytes (%) (Auto) % Eosinophils (%) (Auto) % Basophils (%) (Auto) % Neutrophils # (Auto) TH/MM3 Lymphocytes # (Auto) TH/MM3 Monocytes # (Auto) TH/MM3 Eosinophils # (Auto) TH/MM3 Basophils # (Auto) TH/MM3 CBC Comment AUTO DIFF Differential Total Cells 100 Counted Neutrophils % (Manual) 45 % Lymphocytes % 17 % Monocytes % 33 % Basophils % 5 % Neutrophils # (Manual) 2.9 TH/MM3 Differential Comment FINAL DIFF MANUAL Platelet Estimate LOW Platelet Morphology Comment ENLARGED Helmet Cells OCC Keratocytes 1+ Prothrombin Time 11.3 SEC Prothromb Time International 1.0 RATIO Ratio Activated Partial 27.5 SEC Thromboplast Time Fibrinogen 280 mg/dL Sodium Level 139 MEQ/L Potassium Level 4.1 MEQ/L Chloride Level 110 MEQ/L Carbon Dioxide Level 22.6 MEQ/L Anion Gap 6 MEQ/L Blood Urea Nitrogen 25 MG/DL Creatinine 1.07 MG/DL Estimat Glomerular Filtration 52 ML/MIN Rate Random Glucose 90 MG/DL Calcium Level 7.7 MG/DL Total Bilirubin 0.4 MG/DL Direct Bilirubin 0.1 MG/DL Indirect Bilirubin 0.3 MG/DL Aspartate Amino Transf 9 U/L (AST/SGOT) Alanine Aminotransferase 10 U/L (ALT/SGPT) Alkaline Phosphatase 43 U/L Lactate Dehydrogenase 211 U/L Total Protein 5.2 GM/DL Albumin 2.1 GM/DL Culture Results Microbiology Date/Time Procedure Status Source Growth 06/13/16 10:30 Stool Occult Blood (AGUS) - Final Complete Stool Stool HEMOCCULT NEGATIVE Imaging Studies Last 24 hours Impressions Abdomen MRI 06/13/16 0000 Signed Impressions: Service Date/Time: Monday, June 13, 2016 09:43 - CONCLUSION: 1. 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 2. 5 mm hepatic cyst left lobe liver. 3. Small amount of sludge in the gallbladder. 4. Bilateral parapelvic renal cysts. 5. Diffuse anasarca. Bharat Damon MD Administered Medications Medications (Trade) Dose Ordered Sig/Angela Route PRN Reason Start Time Stop Time Status Last Admin Dose Admin Levothyroxine Sodium (Synthroid) 50 mcg DAILY@0600 PO 06/12/16 06:00 06/13/16 06:03 Folic Acid (Folate) 1 mg DAILY PO 06/12/16 09:00 06/13/16 08:41 Pantoprazole Sodium (Protonix) 40 mg DAILY PO 06/12/16 09:00 06/13/16 08:41 Mesalamine (Pentasa Sr) 1,000 mg QID PO 06/11/16 21:00 06/13/16 13:17 IV Flush (NS Flush) 2 ml BID FLUSH 06/11/16 21:00 06/12/16 08:22 Zolpidem Tartrate (Ambien) 5 mg HS PRN PO INSOMNIA 06/11/16 18:30 06/13/16 00:14 Tramadol HCl (Ultram) 50 mg Q12H PRN PO PAIN GREATER THAN 5 06/12/16 09:00 06/12/16 09:00 Clonidine (Catapres) 0.1 mg Q6H PRN PO SBP> OR = 180, DBP> OR = 100 06/12/16 09:00 06/13/16 06:36 Lorazepam (Ativan) 1 mg Q8H PRN PO ANXIETY AND/OR INSOMNIA 06/12/16 16:30 06/13/16 10:22 Prednisone (Deltasone) 50 mg BID PO 06/13/16 09:00 06/13/16 10:22 Objective Remarks GENERAL: Pleasant middle aged female, walking around in room in no distress. SKIN: Warm and dry. HEAD: Normocephalic. EYES: No injection or drainage. NECK: Supple, trachea midline. CARDIOVASCULAR: +S1/S2. RESPIRATORY: Breath sounds equal bilaterally. No accessory muscle use. GASTROINTESTINAL: Abdomen soft, non-tender, nondistended. EXTREMITIES: No cyanosis NEUROLOGICAL: No obvious focal deficit. Awake, alert, and oriented x3. 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 She was found to be severely anemic and thrombocytopenic. She was subsequently transferred to [place] due to insurance issues. Plan 1. Pt with Capri positive hemolytic anemia; Await ADAMTS-13 results prior to discharge. 2. Daily CBC 3. Transfuse as needed to keep platelets greater than 7.5K, Hgb greater than 7. 4. Supportive care. Attending Statement The exam, history, and the medical decision-making described in the above note were completed with the assistance of the mid-level provider. I reviewed and agree with the findings presented. I attest that I had a [id number] encounter with the patient on the same day, and personally performed and documented my assessment and findings in the medical record. 1. Capri positive hemolytic anemia./LDH high, Haptoglobin low but t.bili not elevated --likely low grade hemolysis - On steroid - Folic acid daily. - Monitor Hb and transfuse for Hb <7 - Will probably need to be monitored over the weekend - No evidence of DIC. Fibrinogen normal. Check fibrinogen in AM - Results of Bone marrow biopsy from [facility] not resulted yet. Spoke with pathologist - Check LDH and Haptoglobin again am 2. 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 if LDH continues to remian high and haptoglobin low. consider plasma exchange - ROSHANTS 13 is pending. Liz Diane Jun 13, 2016 14:28 Farrukh Eagle MD Jun 13, 2016 22:02
[2016-06-13 16:00] VITALS: BP 161/85; PULSE 76; RESP 18; TEMP 97.8; O2SAT 95
[2016-06-13 20:00] VITALS: BP 147/77; PULSE 67; RESP 18; TEMP 97.4; O2SAT 95
[2016-06-13] MEDS: SODIUM CHLORIDE 0.9% FLUSH 5 ML FLUSH FLUSH SCH (20:46)
[2016-06-14] VITALS: BP 160/92; PULSE 61; RESP 18; TEMP 96.2; O2SAT 97
[2016-06-14 04:00] VITALS: BP 170/83; PULSE 60; RESP 19; TEMP 96.3; O2SAT 97
[2016-06-14] MEDS: LEVOTHYROXINE SODIUM 50 MCG TAB PO SCH (05:52)
[2016-06-14 06:42] LABS: BICARBONATE 17.7 MEQ/L (21.0-32.0); POTASSIUM 4.4 MEQ/L (3.5-5.1)
[2016-06-14 06:55] LABS: MEAN CELL VOLUME 91.7 FL (80.0-100.0); MEAN CORPUSCULAR HEMOGLOBIN 30.4 PG (27.0-34.0); MEAN CORPUSCULAR HGB CONC 33.2 % (32.0-36.0); RED BLOOD COUNT 3.38 MIL/MM3 (4.00-5.30); RED CELL DISTRIBUTION WIDTH 17.9 % (11.6-17.2); WHITE BLOOD COUNT 6.1 TH/MM3 (4.0-11.0)
[2016-06-14 08:00] VITALS: BP 163/79; PULSE 71; RESP 16; TEMP 96.9; O2SAT 95
[2016-06-14] MEDS: predniSONE 50 MG TAB PO SCH ×2 (08:33→22:08)
[2016-06-14] MEDS: FOLIC ACID 1 MG TAB PO SCH (08:33)
[2016-06-14] MEDS: PANTOPRAZOLE SOD 40 MG DELAYED RELEASE TAB PO SCH (08:33)
[2016-06-14] MEDS: MESALAMINE 250 MG CAP PO SCH ×4 (08:33→22:08)
[2016-06-14] MEDS: SODIUM CHLORIDE 0.9% FLUSH 5 ML FLUSH FLUSH SCH ×2 (08:35→22:08)
[2016-06-14 12:00] VITALS: BP 187/95; PULSE 65; RESP 16; TEMP 97.5; O2SAT 98
[2016-06-14] MEDS: cloNIDine HCL 0.1 MG TAB PO PRN (13:05)
[2016-06-14] MEDS: ALPRAZolam 0.5 MG TAB PO PRN (13:05)
--- NOTE | 2016-06-14 13:19 | HHI.PR ---
Subjective Remarks Patient reports feeling more puffy today with mild lower extremity swelling. She reports feeling anxious and tearful which she attributed to the steroids. No bleeding. States she hasn't been drinking much fluid. Objective Vitals Vital Signs Date Time Temp Pulse Resp B/P Pulse Ox O2 Delivery O2 Flow Rate FiO2 06/14/16 08:00 96.9 71 16 163/79 95 06/14/16 04:00 96.3 60 19 170/83 97 06/14/16 00:00 96.2 61 18 160/92 97 06/13/16 20:00 97.4 67 18 147/77 95 06/13/16 16:00 97.8 76 18 161/85 95 I/O 06/13/16 06/13/16 06/13/16 06/14/16 06/14/16 06/14/16 07:00 15:00 23:00 07:00 15:00 23:00 Intake Total 450 ml 840 ml 480 ml 240 ml Balance 450 ml 840 ml 480 ml 240 ml Intake Oral 450 ml 840 ml 480 ml 240 ml # Voids 2 3 2 2 # Bowel Movements 0 2 Result Diagram: 06/14/16 0509 06/14/16 0509 Objective Remarks GENERAL: This is a well-nourished, well-developed patient, in no apparent distress. CARDIOVASCULAR: Normal rate and regular rhythm without murmurs, gallops, or rubs. RESPIRATORY: Good respiratory efforts. Breath sounds equal and clear to auscultation bilaterally. GASTROINTESTINAL: Abdomen soft, non-tender, non-distended. Normal active bowel sounds MUSCULOSKELETAL: Trace bilateral lower extremity edema. NEURO: Alert & Oriented x4 to person, place, time, situation. Moves all ext x4 PSYCH: Appropriate mood and affect. Procedures None in this Hospital but had bone marrow biopsy prior to coming to [place] A/P Problem List: (1) Crohns disease ICD Code: K50.90 Status: Acute (2) Thrombocytopenia ICD Code: D69.6 Status: Acute (3) ARF (acute renal failure) ICD Code: N17.9 Status: Acute (4) Anemia ICD Code: D64.9 Status: Acute Assessment and Plan 66-year-old female initially admitted at an outside hospital for bilateral upper and lower extremity swelling, anemia and thrombocytopenia. Patient is transferred to [place] due to insurance. Anemia, thrombocytopenia: The patient has been transfused 2 units of PRBC and 1 unit of platelets. Her hemoglobin improved but her platelet count still low. She was followed by hematology and has been on prednisone. A bone marrow biopsy was done on 06/10/16 -Appreciate banquet coordinator, Dr. Eagle following. Yousif positive and LDH is elevated. Concern for a hemolytic process. Patient restarted on steroid per hematology. On prednisone 50 mg twice a day currently. - H&H improving, platelets still low. Being monitored over the weekend. Further plans per hematology. Splenomegaly: May be contributing to the findings above. Abdominal ultrasound here revealed a 5 cm cystic mass. MRI revealed a hemangioma. Crohn's disease: GI consult reviewed. Patient previously has been on mesalamine but that was discontinued due to cost. She has been on Sulfalazine. She requested to restarted on Mesalamine here which was preferred by her GI. This appear to be stable for now. Continue mesalamine 1000mg 4 times a day. Hemoccult from the outside hospital has been negative. This has been reordered here to ensure no GI bleeding. She will need to follow up outpatient with her disassembler. Acute renal failure: Patient was followed by nephrology at [facility]. MITRA was thought to be due to aggressive diuresis. Renal function fluctuating but stable. Follow-up BMP in a.m. Hypothyroidism: Continue Synthroid GI prophylaxis: PPI. DVT PPx: Sj Schumacher MD Jun 14, 2016 13:18
[2016-06-14 16:00] VITALS: BP 149/82; PULSE 61; RESP 16; TEMP 96.2; O2SAT 97
--- NOTE | 2016-06-14 17:31 | PD.ONC.PN ---
Subjective Subjective Remarks Pt w/ sister at bedside. Discussed findings on peripheral smear. Thrombocytopenia manual count 20-30. Mother has the same thrombocytopenia. Denies any bleeding. Tolerating steroids, eager to go home. Objective Data Date Time Temp Pulse Resp B/P Pulse Ox O2 Delivery O2 Flow Rate FiO2 06/14/16 16:00 96.2 61 16 149/82 97 06/14/16 12:00 97.5 65 16 187/95 98 06/14/16 08:00 96.9 71 16 163/79 95 06/14/16 04:00 96.3 60 19 170/83 97 06/14/16 00:00 96.2 61 18 160/92 97 06/13/16 20:00 97.4 67 18 147/77 95 06/14/16 06/14/16 06/14/16 07:00 15:00 23:00 Intake Total 240 ml 720 ml Balance 240 ml 720 ml Result Diagram: 06/14/16 0509 06/14/16 0509 Laboratory Results Laboratory Tests Test 06/14/16 05:09 White Blood Count 6.1 TH/MM3 Red Blood Count 3.38 MIL/MM3 Hemoglobin 10.3 GM/DL Hematocrit 31.0 % Mean Corpuscular Volume 91.7 FL Mean Corpuscular Hemoglobin 30.4 PG Mean Corpuscular Hemoglobin 33.2 % Concent Red Cell Distribution Width 17.9 % Platelet Count TH/MM3 Mean Platelet Volume 10.2 FL Haptoglobin 79 MG/DL Fibrinogen 333 mg/dL Sodium Level 139 MEQ/L Potassium Level 4.4 MEQ/L Chloride Level 109 MEQ/L Carbon Dioxide Level 17.7 MEQ/L Anion Gap 12 MEQ/L Blood Urea Nitrogen 30 MG/DL Creatinine 1.28 MG/DL Estimat Glomerular Filtration 42 ML/MIN Rate Random Glucose 130 MG/DL Calcium Level 8.1 MG/DL Lactate Dehydrogenase 267 U/L Culture Results Microbiology Date/Time Procedure Status Source Growth 06/13/16 10:30 Stool Occult Blood (AGUS) - Final Complete Stool Stool HEMOCCULT NEGATIVE Administered Medications Medications (Trade) Dose Ordered Sig/Angela Route PRN Reason Start Time Stop Time Status Last Admin Dose Admin Levothyroxine Sodium (Synthroid) 50 mcg DAILY@0600 PO 06/12/16 06:00 06/14/16 05:52 Folic Acid (Folate) 1 mg DAILY PO 06/12/16 09:00 06/14/16 08:33 Pantoprazole Sodium (Protonix) 40 mg DAILY PO 06/12/16 09:00 06/14/16 08:33 Mesalamine (Pentasa Sr) 1,000 mg QID PO 06/11/16 21:00 06/14/16 13:05 IV Flush (NS Flush) 2 ml BID FLUSH 06/11/16 21:00 06/14/16 08:35 Zolpidem Tartrate (Ambien) 5 mg HS PRN PO INSOMNIA 06/11/16 18:30 06/13/16 23:54 Tramadol HCl (Ultram) 50 mg Q12H PRN PO PAIN GREATER THAN 5 06/12/16 09:00 06/12/16 09:00 Clonidine (Catapres) 0.1 mg Q6H PRN PO SBP> OR = 180, DBP> OR = 100 06/12/16 09:00 06/14/16 13:05 Prednisone (Deltasone) 50 mg BID PO 06/13/16 09:00 06/14/16 08:33 Alprazolam (Xanax) 0.5 mg Q6H PRN PO ANXIETY AND/OR INSOMNIA 06/14/16 12:45 06/14/16 13:05 Objective Remarks GENERAL: Well-nourished, well-developed patient. SKIN: Warm and dry. HEAD: Normocephalic. EYES: No scleral icterus. No injection or drainage. NECK: Supple, trachea midline. No JVD or lymphadenopathy. LYMPHATIC: No adenopathy. CARDIOVASCULAR: Regular rate and rhythm without murmurs. RESPIRATORY: Breath sounds equal bilaterally. No accessory muscle use. GASTROINTESTINAL: Abdomen soft, non-tender, nondistended. EXTREMITIES: No cyanosis, or edema. MUSCULOSKELETAL: Adequate muscle tone. NEUROLOGICAL: No obvious focal deficit. Awake, alert, and oriented x3. PSYCHIATRIC: Appropriate mood and affect; insight and judgment normal. Assessment/Plan Problem List: (1) Thrombocytopenia Status: Acute Plan: 06/14/16. Review peripheral smear, giant platelets with neutrophils and Dohle bodies. Request pathology to review findings. Manual count appropriate, no bleeding. 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 Noted few schistocytes but unlikely TTP. Suspect extravascular coomb's positive hemolysis, haptoglobin improve with steroids. --B12/folate WNL --LDH mildly elevated, haptoglobin low, bilirubin WNL --CHER strongly positive (3) Crohns disease Status: Acute Plan: --on mesalamine 1000 mg QID (4) ARF (acute renal failure) Status: Acute Plan: --kidney function has improved with hydration. 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 with progressive weakness and anasarca. She was found to be severely anemic and thrombocytopenic. She was subsequently transferred to [place] due to insurance issues. Plan 1. Pt with Capri positive hemolytic anemia; responding to steroids, noted hgb improve. 2. Await ADAMTS-13 results prior to discharge. 3. Daily CBC 4. Transfuse as needed to keep platelets greater than 7.5K, Hgb greater than 7. 5. Smear reviewed. Vivi Laws MD Jun 14, 2016 17:31
[2016-06-14 20:00] VITALS: BP 143/80; PULSE 69; RESP 20; TEMP 97.5; O2SAT 98
[2016-06-15 00:19] VITALS: BP 172/86; PULSE 60; RESP 18; TEMP 96.5; O2SAT 98
[2016-06-15] MEDS: ZOLPIDEM TARTRATE 5 MG TAB PO PRN ×2 (00:20→23:51)
[2016-06-15 04:00] VITALS: BP 191/95; PULSE 59; RESP 18; TEMP 96.2; O2SAT 96
[2016-06-15] MEDS: ALPRAZolam 0.5 MG TAB PO PRN ×3 (04:02→21:50)
[2016-06-15] MEDS: LEVOTHYROXINE SODIUM 50 MCG TAB PO SCH (06:51)
[2016-06-15 08:00] VITALS: BP 163/87; PULSE 71; RESP 16; TEMP 96.3; O2SAT 99
[2016-06-15] MEDS: predniSONE 50 MG TAB PO SCH ×2 (08:14→19:55)
[2016-06-15] MEDS: SODIUM CHLORIDE 0.9% FLUSH 5 ML FLUSH FLUSH SCH ×2 (08:15→19:51)
[2016-06-15] MEDS: MESALAMINE 250 MG CAP PO SCH ×4 (08:15→21:50)
[2016-06-15] MEDS: FOLIC ACID 1 MG TAB PO SCH (08:15)
[2016-06-15] MEDS: PANTOPRAZOLE SOD 40 MG DELAYED RELEASE TAB PO SCH (08:19)
[2016-06-15 10:39] LABS: HEMATOCRIT 30.9 % (35.0-46.0); MEAN CELL VOLUME 91.3 FL (80.0-100.0); MEAN CORPUSCULAR HEMOGLOBIN 29.7 PG (27.0-34.0); MEAN CORPUSCULAR HGB CONC 32.5 % (32.0-36.0); RED BLOOD COUNT 3.38 MIL/MM3 (4.00-5.30); WHITE BLOOD COUNT 13.2 TH/MM3 (4.0-11.0)
[2016-06-15 11:07] LABS: POTASSIUM 3.9 MEQ/L (3.5-5.1)
[2016-06-15 11:21] LABS: REVIEW FLAG FINAL
[2016-06-15 12:00] VITALS: BP 157/83; PULSE 68; RESP 16; TEMP 95.7; O2SAT 97
--- NOTE | 2016-06-15 12:13 | HHI.PR ---
Subjective Remarks Patient complaint of worsening bilateral lower extremity edema. She also reports a small bruise on her arm after a small bowel in the bathroom. No other complaints otherwise. Objective Vitals Vital Signs Date Time Temp Pulse Resp B/P Pulse Ox O2 Delivery O2 Flow Rate FiO2 06/15/16 08:00 96.3 71 16 163/87 99 06/15/16 04:00 96.2 59 18 191/95 96 06/15/16 00:19 96.5 60 18 172/86 98 06/14/16 20:00 97.5 69 20 143/80 98 06/14/16 16:00 96.2 61 16 149/82 97 I/O 06/14/16 06/14/16 06/14/16 06/15/16 06/15/16 06/15/16 07:00 15:00 23:00 07:00 15:00 23:00 Intake Total 240 ml 720 ml Balance 240 ml 720 ml Intake Oral 240 ml 720 ml # Voids 2 2 2 # Bowel Movements 1 1 Result Diagram: 06/15/16 0940 06/15/16 0940 Objective Remarks GENERAL: This is a well-nourished, well-developed patient, in no apparent distress. CARDIOVASCULAR: Normal rate and regular rhythm without murmurs, gallops, or rubs. RESPIRATORY: Good respiratory efforts. Breath sounds equal and clear to auscultation bilaterally. GASTROINTESTINAL: Abdomen soft, non-tender, non-distended. Normal active bowel sounds MUSCULOSKELETAL: 1+ bilateral lower extremity edema. Small bruise on the medial forearm. NEURO: Alert & Oriented x4 to person, place, time, situation. Moves all ext x4 PSYCH: Appropriate mood and affect. Procedures None in this Hospital but had bone marrow biopsy prior to coming to [place] A/P Problem List: (1) Crohns disease ICD Code: K50.90 Status: Acute (2) Thrombocytopenia ICD Code: D69.6 Status: Acute (3) ARF (acute renal failure) ICD Code: N17.9 Status: Acute (4) Anemia ICD Code: D64.9 Status: Acute Assessment and Plan 66-year-old female initially admitted at an outside hospital for bilateral upper and lower extremity swelling, anemia and thrombocytopenia. Patient is transferred to [place] due to insurance. Anemia, thrombocytopenia: The patient was transfused 2 units of PRBC and 1 unit of platelets at the outside hospital. Her hemoglobin improved but her platelet trended down again. She was followed by hematology and has been on prednisone. A bone marrow biopsy was done on 06/10/16 - Appreciate retail advertising executive, Dr. Eagle following. Yousif positive and LDH is elevated. Concern for a hemolytic process. Patient restarted on steroid per hematology. On prednisone 50 mg twice a day currently. - H&H improving, platelets still low. Being monitored over the weekend. No overt bleeding. Bruise noted this morning. Further plans per hematology. Bilateral lower extremity edema: This was her initial presentation at the outside hospital and was given Lasix. It was suggested overdiuresis contributed to her renal insufficiency. Will consult nephrology to assist with diuresis. Splenomegaly: May be contributing to the findings above. Abdominal ultrasound here revealed a 5 cm cystic mass. MRI revealed a hemangioma. Crohn's disease: GI consult reviewed. Patient previously has been on mesalamine but that was discontinued due to cost. She has been on Sulfalazine. She requested to restarted on Mesalamine here which was preferred by her GI. This appear to be stable for now. Continue mesalamine 1000mg 4 times a day. Hemoccult from the outside hospital has been negative. This has been reordered here to ensure no GI bleeding. She will need to follow up outpatient with her health care administrator. Acute renal failure: Patient was followed by nephrology at [facility]. MITRA was thought to be due to aggressive diuresis. Renal function fluctuating here. Will consult nephrology to assist with diuresis given recurrence of lower extremity edema. Hypothyroidism: Continue Synthroid GI prophylaxis: PPI. DVT PPx: Sj Schumacher MD Jun 15, 2016 12:13
[2016-06-15] MEDS: FUROSEMIDE 20 MG TAB PO SCH (14:01)
--- NOTE | 2016-06-15 14:33 | MB ---
cc: FELIPA CHISHOLM MD DATE OF CONSULTATION: 06/15/2016. REASON FOR CONSULTATION: Elevated BUN and creatinine for evaluation. HISTORY OF PRESENT ILLNESS: This is a 66-year-old female with past medical history of Crohn's disease, history of anemia, thrombocytopenia, osteoarthritis, and possible chronic kidney disease who was admitted hematology workup. I was called to see the patient because of elevated creatinine. The patient was in [facility], and according to her, she was seen by Dr. Dillon there. She was found to have low hemoglobin of 6.5 and platelets of 6000 and her creatinine was 1.69. She underwent bone marrow biopsy and Dr. Dillon did some workup for the renal failure. She was started on prednisone and according to the patient since she has been started on prednisone, she noticed that she has more swelling in the legs. Her creatinine while she is here in the hospital has been fluctuating between 1.1 and 1.3 and now it is 1.24. Her hemoglobin has gone up to 10 after transfusion and the platelets are still low. The last one we have is 30,000 to 40,000. She denies any nausea or vomiting. Her appetite is normal. No shortness of breath. PAST MEDICAL HISTORY: 1. Anemia. 2. Thrombocytopenia. 3. Arthritis. 4. Crohn's disease. 5. Hypothyroidism. 6. Possible chronic kidney disease. 7. History of diverticulitis. PAST SURGICAL HISTORY: 1. Tonsillectomy. 2. Hernia repair. 3. Facelift. REVIEW OF SYSTEMS: Denies any headache, dizziness or blurring of vision. No shortness of breath. No chest pain or palpitations. No nausea or vomiting. No abdominal pain. Her appetite has been normal. No dysuria, hematuria or difficulty in passing urine. SOCIAL HISTORY: There is no history of smoking. She drinks one to two glasses of wine. FAMILY HISTORY: There is no family history of renal disease. ALLERGIES: She has allergy to: 1. AUGMENTIN. 2. CIPRO. MEDICATIONS: Currently she is on: 1. Prednisone 50 milligrams twice a day. 2. Folic acid 1 milligrams once a day. 3. Protonix 40 milligrams once a day. 4. Synthroid 50 micrograms daily. 5. 1 gram four times a day. 6. Zofran as needed. 7. Ultram as needed. 8. Narcan as needed. PHYSICAL EXAMINATION: GENERAL: On examination, the patient is awake and alert and she is not in acute distress. VITAL SIGNS: Her last blood pressure was 163/87. The blood pressure has been on the higher side. Temperature is 96.3. Oxygen saturation is 96% to 99%. HEAD, EYES, EARS, NOSE, THROAT: The pupils are equal and reacting to light. Nonicteric sclerae. Conjunctivae are pale. NECK: The neck is supple. JVD is not elevated. LUNGS: The patient has bilateral good air entry with occasional wheezing. HEART: S1 and S2 regular rhythm. ABDOMEN: Abdomen soft and lax. There is no tenderness. Bowel sounds positive. EXTREMITIES: She has bilateral 2+ edema. INVESTIGATIONS: White blood cell count is 13.2, hemoglobin 10.0, platelet count of 30,000 to 40,000. Sodium 139, potassium 3.9, chloride 108, bicarbonate 22, BUN 34, creatinine 1.24, calcium is 8.5. INR is 1.0. Stool occult blood is negative. IMAGING STUDIES: The patient has an MRI of the abdomen done which shows hemangioma that is clean about 3.8 x 2.4 cm. A 5 mm hepatic cyst and small amount of sludge in the gallbladder. Bilateral parapelvic renal cysts, diffuse anasarca. Ultrasound of the abdomen was also done which shows both kidneys are normal in size. No hydronephrosis in the right kidney. In the left kidney, there is mild hydronephrosis. Bilateral pleural effusions and splenomegaly. ASSESSMENT AND PLAN: 1. Possible chronic kidney disease. 2. Anasarca. 3. Thrombocytopenia. 4. Anemia. 5. History of Crohn's disease. The patient has acute kidney injury with possibility of some chronic kidney disease. Her creatinine is stable. The patient has more edema in the legs. She does not have any urinalysis. I will send for a urinalysis to see if she has any proteinuria. She was seen by Dr. Dillon recently and she probably had some workup done at [facility] so I am not ordering all the workup and Dr. Dillon will follow from tomorrow and he will do the appropriate workup as needed. I will start her on Lasix 20 mg once a day and I also told the patient to decrease oral fluid intake. Thank you for the consultation and the patient will be followed by Dr. Dillon from tomorrow. MD MARY Lindquist/TIM /1:48 PM /2:23 PM
[2016-06-15 16:00] VITALS: BP 185/91; PULSE 59; RESP 16; TEMP 96.8; O2SAT 100
[2016-06-15 17:16] LABS: BLOOD, URINE MOD (NEG); COMMENT (UR) CULTURE INDICATED; CULTURE IF INDICATED CULTURE INDICATED; GLUCOSE,URINE NEG (NEG); KETONE, URINE NEG (NEG); MUCUS URINE FEW /lpf (OCC); NITRITE,URINE NEG (NEG); PH, URINE 5.5 (5.0-8.5); SQUAMOUS EPITHELIAL CELL URINE <1 /hpf (0-5); URINE COLOR YELLOW (YELLW/STRAW)
[2016-06-15] MEDS: cloNIDine HCL 0.1 MG TAB PO PRN (17:57)
[2016-06-15 20:00] VITALS: BP 163/85; PULSE 55; RESP 19; TEMP 97.7; O2SAT 100
[2016-06-16] VITALS (7 sets, daily range): BP systolic 148–200; BP diastolic 80–94; PULSE 53–73; RESP 16–19; TEMP 96.2–97.6; O2SAT 97–100
[2016-06-16] MEDS: cloNIDine HCL 0.1 MG TAB PO PRN ×2 (00:04→20:42)
[2016-06-16] MEDS: LEVOTHYROXINE SODIUM 50 MCG TAB PO SCH (04:46)
[2016-06-16] MEDS: predniSONE 50 MG TAB PO SCH ×2 (06:46→19:09)
[2016-06-16 07:10] LABS: AUTOMATED NEUTROPHIL # 5.6 TH/MM3 (1.8-7.7); BASOPHIL % 0.3 % (0.0-2.0); EOSINOPHIL % 0.2 % (0.0-4.0); HEMATOCRIT 29.4 % (35.0-46.0); LYMPH % 7.1 % (9.0-44.0); LYMPHOCYTE # 0.7 TH/MM3 (1.0-4.8); MEAN CELL VOLUME 92.1 FL (80.0-100.0); MEAN CORPUSCULAR HGB CONC 32.6 % (32.0-36.0); MONO % 32.2 % (0.0-8.0); NEUT % 60.2 % (16.0-70.0); RED BLOOD COUNT 3.19 MIL/MM3 (4.00-5.30); RED CELL DISTRIBUTION WIDTH 17.4 % (11.6-17.2); WHITE BLOOD COUNT 9.4 TH/MM3 (4.0-11.0)
[2016-06-16 07:37] LABS: BICARBONATE 19.9 MEQ/L (21.0-32.0); POTASSIUM 4.2 MEQ/L (3.5-5.1)
[2016-06-16 07:52] LABS: HEMO FLAGS AUTO DIFF
[2016-06-16 07:53] LABS: ACANTHOCYTES OCC (NORMAL); HELMET CELLS OCC (NORMAL)
[2016-06-16 07:54] LABS: PLATELET ESTIMATE SMEAR LOW (NORMAL); PLATELET MORPHOLOGY ENLARGED (NORMAL); SCAN/DIFF AUTO DIFF CONFIRMED
[2016-06-16] MEDS: MESALAMINE 250 MG CAP PO SCH ×4 (09:17→20:39)
[2016-06-16] MEDS: SODIUM CHLORIDE 0.9% FLUSH 5 ML FLUSH FLUSH SCH ×2 (09:17→20:39)
[2016-06-16] MEDS: FOLIC ACID 1 MG TAB PO SCH (09:17)
[2016-06-16] MEDS: FUROSEMIDE 20 MG TAB PO SCH ×2 (09:17→20:39)
[2016-06-16] MEDS: PANTOPRAZOLE SOD 40 MG DELAYED RELEASE TAB PO SCH (09:18)
--- NOTE | 2016-06-16 09:44 | HHI.NPPN ---
Subjective General Problems: Edema Renal Failure: Acute Interval History Renal function is stable. She does have dependent edema. (Jessica Tidwell) Review of Systems Cardiovascular Cardiac: Edema (Jessica Tidwell) Objective Data Data 06/15/16 06/16/16 19:00 07:00 Intake Total 480 ml 960 ml Balance 480 ml 960 ml Intake Oral 480 ml 960 ml # Voids 3 4 # Bowel Movements 1 0 Vital Signs Date Time Temp Pulse Resp B/P Pulse Ox O2 Delivery O2 Flow Rate FiO2 06/16/16 04:00 96.3 53 19 157/81 97 06/16/16 00:00 97.6 57 19 190/84 100 06/15/16 20:00 97.7 55 19 163/85 100 06/15/16 16:00 96.8 59 16 185/91 100 06/15/16 12:00 95.7 68 16 157/83 97 (Jessica Tidwell) -: 06/16/16 0615 06/16/16 0615 Microbiology 06/15/16 Urine Culture, Received Pending (Jessica Tidwell) Physical Exam General Appearance: Well Developed, Well Nourished, No Acute Distress (Jessica Tidwell) Throat Throat Exam: Oral Mucosa [place] & Moist (Jessica Tidwell) Pulmonary Resp Exam: Clear Bilaterally, Breath Sounds Equal (Jessica Tidwell) Cardiology CV Exam: Regular, Normal Sinus Rhythm (Jessica Tidwell) Gastrointestinal/Abdomen GI Exam: Soft, Non-Tender (Jessica Tidwell) Genitourinary Exam: Clear Urine (Jessica Tidwell) Musculoskeletal MS Exam: Joints Intact, Normal Gait, Normal Tone (Jessica Tidwell) Integumentary Skin Exam: Clear, Warm, Dry (Jessica Tidwell) Extremeties Extremities Exam: Pedal Pulses Palpable, Moderate Edema (Jessica Tidwell) Neurologic Neuro Exam: Alert, Awake, Oriented, Speech Clear, Moving All Extremities ( Jessica Tidwell) Psychiatric Psych Exam: Appropriate Responses (Jessica Tidwell) Assessment/Plan Discussed Condition With: Patient Assessment Summary: Proteinuria Problem List: (1) ARF (acute renal failure) Plan: Renal function is stable she is tolerating oral fluids, no IVF required has dependent edema increase lasix to 20 mg BID, she is voiding well she has proteinuria, quantify and obtain serologies renal panel in am (2) Thrombocytopenia Plan: with anemia hematology/oncology following, appreciate recommendations awaiting bone marrow biopsy report from [facility] (Jessica Tidwell) Problem List: (1) Thrombocytopenia (2) ARF (acute renal failure) (3) Proteinuria Plan: UA revealed unexplained proteinuria. Also has RBCs and WBCs. I will quantify proteinuria. Review records from [facility], and if necessary order serologies. (Prabhu Dillon MD) Jessica Tidwell Jun 16, 2016 09:44 Prabhu Dillon MD Jun 16, 2016 11:37
--- NOTE | 2016-06-16 09:54 | HHI.PR ---
Subjective Remarks Patient reports that she is feeling well today except for mild worsening of lower extremity edema. No SOB. Urinating well. Objective Vitals Vital Signs Date Time Temp Pulse Resp B/P Pulse Ox O2 Delivery O2 Flow Rate FiO2 06/16/16 04:00 96.3 53 19 157/81 97 06/16/16 00:00 97.6 57 19 190/84 100 06/15/16 20:00 97.7 55 19 163/85 100 06/15/16 16:00 96.8 59 16 185/91 100 06/15/16 12:00 95.7 68 16 157/83 97 I/O 06/15/16 06/15/16 06/15/16 06/16/16 06/16/16 06/16/16 07:00 15:00 23:00 07:00 15:00 23:00 Intake Total 480 ml 480 ml 480 ml Balance 480 ml 480 ml 480 ml Intake Oral 480 ml 480 ml 480 ml # Voids 2 3 2 2 # Bowel Movements 1 1 0 0 Result Diagram: 06/16/1615 06/16/1615 Objective Remarks GENERAL: This is a well-nourished, well-developed patient, in no apparent distress. CARDIOVASCULAR: Normal rate and regular rhythm without murmurs, gallops, or rubs. RESPIRATORY: Good respiratory efforts. Breath sounds equal and clear to auscultation bilaterally. GASTROINTESTINAL: Abdomen soft, non-tender, non-distended. Normal active bowel sounds MUSCULOSKELETAL: 2+ bilateral lower extremity edema. Small bruise on the medial forearm. NEURO: Alert & Oriented x4 to person, place, time, situation. Moves all ext x4 PSYCH: Appropriate mood and affect. Procedures None in this Hospital but had bone marrow biopsy prior to coming to [place] A/P Problem List: (1) Crohns disease ICD Code: K50.90 Status: Acute (2) Thrombocytopenia ICD Code: D69.6 Status: Acute (3) ARF (acute renal failure) ICD Code: N17.9 Status: Acute (4) Anemia ICD Code: D64.9 Status: Acute Assessment and Plan 66-year-old female initially admitted at an outside hospital for bilateral upper and lower extremity swelling, anemia and thrombocytopenia. Patient is transferred to [place] due to insurance. Anemia, thrombocytopenia: The patient was transfused 2 units of PRBC and 1 unit of platelets at the outside hospital. Her hemoglobin improved but her platelet trended down again. She was followed by hematology and has been on prednisone. A bone marrow biopsy was done on 06/10/16 at the outside Hospital. - Appreciate grain sacker, Dr. Eagle following. Yousif positive and LDH is elevated. Concern for a hemolytic process. Patient restarted on steroid per hematology. On prednisone 50 mg twice a day currently. - H&H improving, Estimated platelets 30K. No overt bleeding. [place] 13 pending. Further plans per hematology. Bilateral lower extremity edema: Nephrology following. Patient started on Lasix. Continue to monitor. Steroid may be contributing. Splenomegaly: May be contributing to the findings above. Abdominal ultrasound here revealed a 5 cm cystic mass. MRI revealed a hemangioma. Crohn's disease: GI consult reviewed. Patient previously has been on mesalamine but that was discontinued due to cost. She has been on Sulfalazine. She requested to restarted on Mesalamine here which was preferred by her GI. This appear to be stable for now. Continue mesalamine 1000mg 4 times a day. Hemoccult from the outside hospital has been negative. This has been reordered here to ensure no GI bleeding. She will need to follow up outpatient with her burglar alarm installer. Acute renal failure: - Nephrology following. ?Some underlying chronic disease. Urinalysis shows proteinuria. Discussed with microbiology. Urine culture is negative to date. Hypothyroidism: Continue Synthroid. TSH OK. GI prophylaxis: PPI. DVT PPx: SCDs Discharge Planning Pending improvement and clearance from Hematology Sj Kc MD Jun 16, 2016 09:54
[2016-06-16] MEDS: ALPRAZolam 0.5 MG TAB PO PRN ×2 (09:55→21:56)
--- NOTE | 2016-06-16 13:20 | PD.ONC.PN ---
Subjective Subjective Remarks Afebrile overnight. Patient resting comfortably. She is very eager to know when she can go home. She is frustrated that she continues to have swelling in her legs from steroids. Objective Data Date Time Temp Pulse Resp B/P Pulse Ox O2 Delivery O2 Flow Rate FiO2 06/16/16 08:00 96.2 62 18 148/82 98 06/16/16 04:00 96.3 53 19 157/81 97 06/16/16 00:00 97.6 57 19 190/84 100 06/15/16 20:00 97.7 55 19 163/85 100 06/15/16 16:00 96.8 59 16 185/91 100 Result Diagram: 06/16/16 0615 06/16/16 0615 Laboratory Results Laboratory Tests Test 06/15/16 06/16/16 15:34 06:15 Urine Color YELLOW Urine Turbidity HAZY Urine pH 5.5 Urine Specific [place] 1.015 Urine Protein 300 mg/dL Urine Glucose (UA) NEG mg/dL Urine Ketones NEG mg/dL Urine Occult Blood MOD Urine Nitrite NEG Urine Bilirubin NEG Urine Urobilinogen LESS THAN 2.0 MG/DL Urine Leukocyte Esterase MOD Urine RBC 26 /hpf Urine WBC 35 /hpf Urine Squamous Epithelial <1 /hpf Cells Urine Mucus FEW /lpf Microscopic Urinalysis Comment CULTURE INDICATED White Blood Count 9.4 TH/MM3 Red Blood Count 3.19 MIL/MM3 Hemoglobin 9.6 GM/DL Hematocrit 29.4 % Mean Corpuscular Volume 92.1 FL Mean Corpuscular Hemoglobin 30.0 PG Mean Corpuscular Hemoglobin 32.6 % Concent Red Cell Distribution Width 17.4 % Platelet Count TH/MM3 Mean Platelet Volume 11.5 FL Neutrophils (%) (Auto) 60.2 % Lymphocytes (%) (Auto) 7.1 % Monocytes (%) (Auto) 32.2 % Eosinophils (%) (Auto) 0.2 % Basophils (%) (Auto) 0.3 % Neutrophils # (Auto) 5.6 TH/MM3 Lymphocytes # (Auto) 0.7 TH/MM3 Monocytes # (Auto) 3.0 TH/MM3 Eosinophils # (Auto) 0.0 TH/MM3 Basophils # (Auto) 0.0 TH/MM3 CBC Comment AUTO DIFF Differential Comment AUTO DIFF CONFIRMED Platelet Estimate LOW Platelet Morphology Comment ENLARGED Helmet Cells OCC Acanthocytes OCC Sodium Level 140 MEQ/L Potassium Level 4.2 MEQ/L Chloride Level 110 MEQ/L Carbon Dioxide Level 19.9 MEQ/L Anion Gap 10 MEQ/L Blood Urea Nitrogen 35 MG/DL Creatinine 1.24 MG/DL Estimat Glomerular Filtration 44 ML/MIN Rate Random Glucose 115 MG/DL Calcium Level 8.2 MG/DL Culture Results Microbiology Date/Time Procedure Status Source Growth 06/15/16 15:34 Urine Culture - Preliminary Resulted Urine Clean Catch NO GROWTH IN 24 HOURS. Administered Medications Medications (Trade) Dose Ordered Sig/Angela Route PRN Reason Start Time Stop Time Status Last Admin Dose Admin Levothyroxine Sodium (Synthroid) 50 mcg DAILY@0600 PO 06/12/16 06:00 06/16/16 04:46 Folic Acid (Folate) 1 mg DAILY PO 06/12/16 09:00 06/16/16 09:17 Pantoprazole Sodium (Protonix) 40 mg DAILY PO 06/12/16 09:00 06/16/16 09:18 Mesalamine (Pentasa Sr) 1,000 mg QID PO 06/11/16 21:00 06/16/16 13:06 IV Flush (NS Flush) 2 ml BID FLUSH 06/11/16 21:00 06/16/16 09:17 Zolpidem Tartrate (Ambien) 5 mg HS PRN PO INSOMNIA 06/11/16 18:30 06/15/16 23:51 Tramadol HCl (Ultram) 50 mg Q12H PRN PO PAIN GREATER THAN 5 06/12/16 09:00 06/12/16 09:00 Clonidine (Catapres) 0.1 mg Q6H PRN PO SBP> OR = 180, DBP> OR = 100 06/12/16 09:00 06/16/16 00:04 Prednisone (Deltasone) 50 mg BID PO 06/13/16 09:00 06/16/16 06:46 Alprazolam (Xanax) 0.5 mg Q6H PRN PO ANXIETY AND/OR INSOMNIA 06/14/16 12:45 06/16/16 09:55 Objective Remarks GENERAL: Middle aged female, sitting up in bed in [facility]. SKIN: Warm and dry. bruise on right forearm. HEAD: Normocephalic. EYES: No scleral icterus. No injection or drainage. NECK: Supple, trachea midline. CARDIOVASCULAR: Regular rate and rhythm RESPIRATORY: Breath sounds equal bilaterally. No accessory muscle use. GASTROINTESTINAL: Abdomen soft, non-tender, nondistended. EXTREMITIES: No cyanosis. 2+ edema in bilateral lower extremities MUSCULOSKELETAL: Adequate muscle tone. NEUROLOGICAL: No obvious focal deficit. Awake, alert, and oriented x3. Assessment/Plan Problem List: (1) Thrombocytopenia Status: Acute Plan: 06/16/16: bone marrow biopsy result faxed from [facility]--shows markedly increased hypercellular bone marrow 80-90% cellularity with dysmegakaryocytic hyperplasia, mild dyserythropoiesis, mild marrow fibrosis. 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 She was found to be severely anemic and thrombocytopenic. She was subsequently transferred to [place] due to insurance issues. Plan 1. await ADAMTS-13 2. continue steroids 3. monitor CBC Attending Statement The exam, history, and the medical decision-making described in the above note were completed with the assistance of the mid-level provider. I reviewed and agree with the findings presented. I attest that I had a [id number] encounter with the patient on the same day, and personally performed and documented my assessment and findings in the medical record. 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 Hb stable. Continue steroids. Awaiting results of ADAMTS-13. If activity not low and Hb stabe, she can be discharged home. Protenuria work ongoing. Will get UPEP and UIFE. Geno Gomes Jun 16, 2016 13:20 Farrukh Eagle MD Jun 16, 2016 23:00
[2016-06-16] MEDS: ZOLPIDEM TARTRATE 5 MG TAB PO PRN (23:49)
[2016-06-17] VITALS (8 sets, daily range): BP systolic 146–204; BP diastolic 80–97; PULSE 53–65; RESP 15–18; TEMP 96.3–97.7; O2SAT 97–99
[2016-06-17] MEDS: LEVOTHYROXINE SODIUM 50 MCG TAB PO SCH (05:31)
[2016-06-17] MEDS: predniSONE 50 MG TAB PO SCH (07:11)
[2016-06-17 07:12] LABS: HEMATOCRIT 28.1 % (35.0-46.0); MEAN CELL VOLUME 91.1 FL (80.0-100.0); MEAN CORPUSCULAR HEMOGLOBIN 29.8 PG (27.0-34.0); MEAN CORPUSCULAR HGB CONC 32.8 % (32.0-36.0); RED BLOOD COUNT 3.09 MIL/MM3 (4.00-5.30); RED CELL DISTRIBUTION WIDTH 17.6 % (11.6-17.2); WHITE BLOOD COUNT 11.9 TH/MM3 (4.0-11.0)
[2016-06-17 07:41] LABS: BICARBONATE 22.3 MEQ/L (21.0-32.0)
[2016-06-17 07:56] LABS: REVIEW FLAG AUTO DIFF
[2016-06-17] MEDS: FOLIC ACID 1 MG TAB PO SCH (08:32)
[2016-06-17] MEDS: PANTOPRAZOLE SOD 40 MG DELAYED RELEASE TAB PO SCH (08:32)
[2016-06-17] MEDS: cloNIDine HCL 0.1 MG TAB PO PRN (08:33)
[2016-06-17] MEDS: FUROSEMIDE 20 MG TAB PO SCH ×2 (08:33→20:23)
[2016-06-17] MEDS: MESALAMINE 250 MG CAP PO SCH ×4 (08:33→20:23)
[2016-06-17] MEDS: SODIUM CHLORIDE 0.9% FLUSH 5 ML FLUSH FLUSH SCH ×2 (08:36→20:23)
[2016-06-17] MEDS ORDERED: ENALAPRILAT 1.25 MG/ML VIAL IV PUSH PRN (08:45)
[2016-06-17] MEDS ORDERED: hydrALAZINE HCL 25 MG TAB PO SCH (09:00)
--- NOTE | 2016-06-17 09:53 | HHI.PR ---
Subjective Remarks Follow-up anemia thrombocytopenia, bilateral lower extremity edema, Crohn's disease and acute renal failure. Patient reports she's feeling well overall. Patient continues to complain of bilateral lower extremity edema. Patient with nonpitting bilateral lower extremity edema. Patient also noted to have elevated blood pressure this morning 200/91. Patient reports she often gets elevated blood pressure after taking steroids. Patient denies shortness of breath chest pain nausea vomiting diarrhea constipation fevers or chills. Objective Vitals Vital Signs Date Time Temp Pulse Resp B/P Pulse Ox O2 Delivery O2 Flow Rate FiO2 06/17/16 04:00 96.6 53 15 172/91 97 06/17/16 00:00 96.3 65 16 155/89 99 06/16/16 22:31 59 151/80 06/16/16 20:00 96.9 66 16 200/90 99 06/16/16 16:00 96.8 54 18 166/87 99 06/16/16 12:00 97.2 73 18 151/94 99 I/O 06/16/16 06/16/16 06/16/16 06/17/16 06/17/16 06/17/16 07:00 15:00 23:00 07:00 15:00 23:00 Intake Total 480 ml 1080 ml 480 ml 480 ml Balance 480 ml 1080 ml 480 ml 480 ml Intake Oral 480 ml 1080 ml 480 ml 480 ml # Voids 2 5 2 # Bowel Movements 0 Result Diagram: 06/17/16 0651 06/17/16 0651 Imaging Last Impressions Abdomen MRI 06/13/16 0000 Signed Impressions: Service Date/Time: Monday, June 13, 2016 09:43 - CONCLUSION: 1. 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 2. 5 mm hepatic cyst left lobe liver. 3. Small amount of sludge in the gallbladder. 4. Bilateral parapelvic renal cysts. 5. Diffuse anasarca. Bharat Damon MD Abdomen Ultrasound 06/12/16 0000 Signed Impressions: Service Date/Time: May 09:51 - CONCLUSION: 1. Splenomegaly. Additionally, there is a partially solid and cystic appearing mass in the central spleen measuring up to 5 cm. Differential diagnostic considerations are broad. Suggest correlating with any prior imaging studies that could determine chronicity of this finding. Although most incidentally detected splenic lesions are benign, given the splenomegaly and the appearance is ideally should be further characterized with MRI with and without intravenous contrast at some point if not already performed. 2. Small bilateral pleural pleural effusions and trace ascites in the upper abdomen. 3. Mild left hydronephrosis from uncertain etiology. Charli Roman MD Objective Remarks GENERAL: This is a well-nourished, well-developed patient, in no apparent distress. CARDIOVASCULAR: Normal rate and regular rhythm without murmurs, gallops, or rubs. RESPIRATORY: Good respiratory efforts. Breath sounds equal and clear to auscultation bilaterally. GASTROINTESTINAL: Abdomen soft, non-tender, non-distended. Normal active bowel sounds MUSCULOSKELETAL: Nonpitting bilateral lower extremity edema. 5 out of 5 muscle strength throughout NEURO: Alert & Oriented x4 to person, place, time, situation. Moves all ext x4 PSYCH: Appropriate mood and affect. Procedures None in this Hospital but had bone marrow biopsy prior to coming to [place] Medications and IVs Current Medications Medications (Trade) Dose Ordered Sig/Angela Route Start Time Stop Time Status Last Admin (Synthroid) 50 mcg DAILY@0600 PO 06/12/16 06:00 06/17/16 05:31 (Folate) 1 mg DAILY PO 06/12/16 09:00 06/17/16 08:32 (Protonix) 40 mg DAILY PO 06/12/16 09:00 06/17/16 08:32 (Pentasa Sr) 1,000 mg QID PO 06/11/16 21:00 06/17/16 08:33 (NS Flush) 2 ml UNSCH PRN FLUSH 06/11/16 18:30 (NS Flush) 2 ml BID FLUSH 06/11/16 21:00 06/17/16 08:36 (Tylenol) 650 mg Q4H PRN PO 06/11/16 18:30 (Zofran Inj) 4 mg Q6H PRN IVP 06/11/16 18:30 (Ambien) 5 mg HS PRN PO 06/11/16 18:30 06/16/16 23:49 (Narcan Inj) 0.4 mg UNSCH PRN IV 06/11/16 18:30 (Ultram) 50 mg Q12H PRN PO 06/12/16 09:00 06/12/16 09:00 (Catapres) 0.1 mg Q6H PRN PO 06/12/16 09:00 06/17/16 08:33 (Deltasone) 50 mg BID PO 06/13/16 09:00 06/17/16 07:11 (Xanax) 0.5 mg Q6H PRN PO 06/14/16 12:45 06/17/16 10:18 (Lasix) 20 mg BID PO 06/16/16 21:00 06/17/16 08:33 (Apresoline) 25 mg Q8HR PO 06/17/16 09:00 06/17/16 10:19 (Vasotec Inj) 1.25 mg Q6H PRN IV PUSH 06/17/16 08:45 A/P Problem List: (1) Crohns disease ICD Code: K50.90 Status: Acute (2) Thrombocytopenia ICD Code: D69.6 Status: Acute (3) ARF (acute renal failure) ICD Code: N17.9 Status: Acute (4) Anemia ICD Code: D64.9 Status: Acute Assessment and Plan 66-year-old female initially admitted at an outside hospital for bilateral upper and lower extremity swelling, anemia and thrombocytopenia. Patient is transferred to [place] due to insurance. Anemia, thrombocytopenia: The patient was transfused 2 units of PRBC and 1 unit of platelets at the outside hospital. Her hemoglobin today is 9.2 and platelet count 17.6. She was followed by hematology and has been on prednisone. A bone marrow biopsy was done on 06/10/16 at the outside Hospital. - Appreciate community youth secretary, Dr. Eagle following. Yousif positive and LDH is elevated. Concern for a hemolytic process. Patient restarted on steroid per hematology. On prednisone 50 mg twice a day, will be discharged on a taper. - H&H reviewed hemoglobin 9.2 hematocrit 28.1, Estimated platelets 17.6 K. No overt bleeding. [place] 13 pending. Further plans per hematology. Bilateral lower extremity edema: Nephrology following. Patient started on Lasix. Continue to monitor. Steroid may be contributing. Splenomegaly: May be contributing to the findings above. Abdominal ultrasound here revealed a 5 cm cystic mass. MRI revealed a hemangioma. Crohn's disease: GI consult reviewed. Patient previously has been on mesalamine but that was discontinued due to cost. She has been on Sulfalazine. She requested to restarted on Mesalamine here which was preferred by her GI. This appear to be stable for now. Continue mesalamine 1000mg 4 times a day. Hemoccult from the outside hospital has been negative. This has been reordered here to ensure no GI bleeding. 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 Acute renal failure: - Nephrology following. ?Some underlying chronic disease. Urinalysis shows proteinuria. Discussed with microbiology. Urine culture is negative to date. - Recheck BMP in a.m. - start low dose ACEi. Hypothyroidism: Continue Synthroid. TSH OK. Hypertension likely also secondary to prednisone - Start hydralazine 25 mg every 8 hours - Continue clonidine when necessary - Monitor trend adjust as needed. - low dose ACEi added. GI prophylaxis: PPI. DVT PPx: SCDs Discharge Planning Pending improvement and clearance from Hematology Plan of care discussed with patient and nursing Written by Vanesa Sahu, acting as scribe for Dr. Salcido on 06/17/16 at 10:05. Discharge Planning The pt will likely be discharged home in 1-2 days. Attending Statement The documentation accurately reflects the work performed [id number] by me on at 10:05. Vanesa Sahu Jun 17, 2016 09:53 Chris Salcido DO Jun 17, 2016 13:11
--- NOTE | 2016-06-17 09:59 | HHI.NPPN ---
Subjective General Problems: Edema Renal Failure: Acute Interval History Renal function is better. Edema persists but improving. Good urine output. ( Jessica Tidwell) Review of Systems Cardiovascular Cardiac: Edema (Jessica Tidwell) Objective Data Data 06/16/16 06/17/16 19:00 07:00 Intake Total 1080 ml 960 ml Balance 1080 ml 960 ml Intake Oral 1080 ml 960 ml # Voids 5 2 Vital Signs Date Time Temp Pulse Resp B/P Pulse Ox O2 Delivery O2 Flow Rate FiO2 06/17/16 04:00 96.6 53 15 172/91 97 06/17/16 00:00 96.3 65 16 155/89 99 06/16/16 22:31 59 151/80 06/16/16 20:00 96.9 66 16 200/90 99 06/16/16 16:00 96.8 54 18 166/87 99 06/16/16 12:00 97.2 73 18 151/94 99 (Jessica Tidwell) -: 06/17/16 0651 06/17/16 0651 Physical Exam General Appearance: Well Developed, Well Nourished, No Acute Distress (Jessica Tidwell) Throat Throat Exam: Oral Mucosa [place] & Moist (Jessica Tidwell) Pulmonary Resp Exam: Clear Bilaterally, Breath Sounds Equal (Jessica Tidwell) Cardiology CV Exam: Regular, Normal Sinus Rhythm (Jessica Tidwell) Gastrointestinal/Abdomen GI Exam: Soft, Non-Tender (Jessica Tidwell) Genitourinary Exam: Clear Urine (Jessica Tidwell) Musculoskeletal MS Exam: Joints Intact, Normal Gait, Normal Tone (Jessica Tidwell) Integumentary Skin Exam: Clear, Warm, Dry (Jessica Tidwell) Extremeties Extremities Exam: Pedal Pulses Palpable, Moderate Edema (Jessica Tidwell) Neurologic Neuro Exam: Alert, Awake, Oriented, Speech Clear, Moving All Extremities ( Jessica Tidwell) Psychiatric Psych Exam: Appropriate Responses (Jessica Tidwell) Assessment/Plan Discussed Condition With: Patient Assessment Summary: Proteinuria Problem List: (1) ARF (acute renal failure) Plan: Initially due to overdiuresis at [facility] that improved with IVF renal function has improved on Lasix BID for edema, monitor effect (2) Proteinuria Plan: UA revealed unexplained proteinuria in a non diabetic pt. protein quantification ordered and sent, D/W nurse consider RENETTA or ARB at discharge (3) Thrombocytopenia Plan: hematology following bone marrow biopsy results received from transferring facility (Jessica Tidwell) Plan patient was seen and examined. Renal function has improved. She has proteinuria. We will quantify proteinuria. Also, serologies have been ordered. (Prabhu Dillon MD) Jessica Tidwell Jun 17, 2016 09:59 Prabhu Dillon MD Jun 17, 2016 16:22
[2016-06-17] MEDS: ALPRAZolam 0.5 MG TAB PO PRN ×2 (10:18→21:51)
--- NOTE | 2016-06-17 11:37 | PD.ONC.PN ---
Subjective Subjective Remarks Afebrile overnight. Patient frustrated that she is still in hospital and with the swelling in her legs. Objective Data Date Time Temp Pulse Resp B/P Pulse Ox O2 Delivery O2 Flow Rate FiO2 06/17/16 10:19 179/94 06/17/16 08:00 96.6 55 18 204/97 98 06/17/16 04:00 96.6 53 15 172/91 97 06/17/16 00:00 96.3 65 16 155/89 99 06/16/16 22:31 59 151/80 06/16/16 20:00 96.9 66 16 200/90 99 06/16/16 16:00 96.8 54 18 166/87 99 06/16/16 12:00 97.2 73 18 151/94 99 06/17/16 06/17/16 06/17/16 07:00 15:00 23:00 Intake Total 480 ml Balance 480 ml Result Diagram: 06/17/16 0651 06/17/16 0651 Laboratory Results Laboratory Tests Test 06/17/16 06:51 White Blood Count 11.9 TH/MM3 Red Blood Count 3.09 MIL/MM3 Hemoglobin 9.2 GM/DL Hematocrit 28.1 % Mean Corpuscular Volume 91.1 FL Mean Corpuscular Hemoglobin 29.8 PG Mean Corpuscular Hemoglobin 32.8 % Concent Red Cell Distribution Width 17.6 % Platelet Count TH/MM3 Mean Platelet Volume 10.8 FL Sodium Level 142 MEQ/L Potassium Level 4.0 MEQ/L Chloride Level 109 MEQ/L Carbon Dioxide Level 22.3 MEQ/L Anion Gap 11 MEQ/L Blood Urea Nitrogen 37 MG/DL Creatinine 1.18 MG/DL Estimat Glomerular Filtration 46 ML/MIN Rate Random Glucose 112 MG/DL Calcium Level 8.5 MG/DL Lactate Dehydrogenase 197 U/L Culture Results Microbiology Date/Time Procedure Status Source Growth 06/15/16 15:34 Urine Culture - Final Complete Urine Clean Catch NO GROWTH IN 48 HOURS. Administered Medications Medications (Trade) Dose Ordered Sig/Angela Route PRN Reason Start Time Stop Time Status Last Admin Dose Admin Levothyroxine Sodium (Synthroid) 50 mcg DAILY@0600 PO 06/12/16 06:00 06/17/16 05:31 Folic Acid (Folate) 1 mg DAILY PO 06/12/16 09:00 06/17/16 08:32 Pantoprazole Sodium (Protonix) 40 mg DAILY PO 06/12/16 09:00 06/17/16 08:32 Mesalamine (Pentasa Sr) 1,000 mg QID PO 06/11/16 21:00 06/17/16 08:33 IV Flush (NS Flush) 2 ml BID FLUSH 06/11/16 21:00 06/17/16 08:36 Zolpidem Tartrate (Ambien) 5 mg HS PRN PO INSOMNIA 06/11/16 18:30 06/16/16 23:49 Tramadol HCl (Ultram) 50 mg Q12H PRN PO PAIN GREATER THAN 5 06/12/16 09:00 06/12/16 09:00 Clonidine (Catapres) 0.1 mg Q6H PRN PO SBP> OR = 180, DBP> OR = 100 06/12/16 09:00 06/17/16 08:33 Prednisone (Deltasone) 50 mg BID PO 06/13/16 09:00 06/17/16 07:11 Alprazolam (Xanax) 0.5 mg Q6H PRN PO ANXIETY AND/OR INSOMNIA 06/14/16 12:45 06/17/16 10:18 Furosemide (Lasix) 20 mg BID PO 06/16/16 21:00 06/17/16 08:33 Hydralazine HCl (Apresoline) 25 mg Q8HR PO 06/17/16 09:00 06/17/16 10:19 Objective Remarks GENERAL: Middle aged female, standing upright in nad. SKIN: Warm and dry. HEAD: Normocephalic. EYES: No scleral icterus. No injection or drainage. NECK: Supple, trachea midline. EXTREMITIES: No cyanosis. moderate bilateral lower extremity edema. MUSCULOSKELETAL: Adequate muscle tone. NEUROLOGICAL: independently ambulatory, aox3. no obvious focal deficit Assessment/Plan Problem List: (1) Thrombocytopenia Status: Acute Plan: 06/17/16: platelet count between 40-60 slide estimate. awaiting [id number]. 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 She was found to be severely anemic and thrombocytopenic. She was subsequently transferred to [place] due to insurance issues. Plan 1. ADAMTS 13 to return Thursday 2. monitor CBC 3. monitor for bleeding 4. continue steroids. Attending Statement The exam, history, and the medical decision-making described in the above note were completed with the assistance of the mid-level provider. I reviewed and agree with the findings presented. I attest that I had a [id number] encounter with the patient on the same day, and personally performed and documented my assessment and findings in the medical record. Hb is stable . Decrease prednisone to 30mg PO BID. ADAMTS 13 activity low but not diagnostic of TTP. Clinically doing week. OK to d/c home with f/u in clinic Discussed with patient, the Bone marrow biopsy of findings of low grade MDS. no blast population see. Spent 30 minutes with the patient Geno Gomes Jun 17, 2016 11:37 Farrukh Eagle MD Jun 18, 2016 00:20
[2016-06-17 12:48] LABS: TOTAL PROTEIN SPE 5.6 GM/DL (6.0-7.6)
[2016-06-17] MEDS ORDERED: PILL SPLITTER OTHER PRN (13:15)
[2016-06-17] MEDS: LISINOPRIL 5 MG TAB PO SCH (14:49)
[2016-06-17 15:53] LABS: HEPATITIS B SURFACE ANTIBODY 2.2 mIU/mL
[2016-06-17 17:53] LABS: VWF CLEAVING PROT ACT 26 (68-163)
[2016-06-17] MEDS: predniSONE 10 MG TAB PO SCH (19:06)
[2016-06-18] VITALS: BP 162/82; PULSE 64; RESP 16; TEMP 97; O2SAT 96
[2016-06-18] MEDS: ZOLPIDEM TARTRATE 5 MG TAB PO PRN
[2016-06-18] MEDS: LEVOTHYROXINE SODIUM 50 MCG TAB PO SCH (04:41)
[2016-06-18 04:42] VITALS: BP 168/88; PULSE 64; RESP 16; TEMP 96.9; O2SAT 94
[2016-06-18] MEDS: predniSONE 10 MG TAB PO SCH (07:46)
[2016-06-18] MEDS: MESALAMINE 250 MG CAP PO SCH (07:46)
[2016-06-18] MEDS: PANTOPRAZOLE SOD 40 MG DELAYED RELEASE TAB PO SCH (07:46)
[2016-06-18] MEDS: FOLIC ACID 1 MG TAB PO SCH (07:46)
[2016-06-18] MEDS: FUROSEMIDE 20 MG TAB PO SCH (07:46)
[2016-06-18] MEDS: LISINOPRIL 5 MG TAB PO SCH (07:47)
[2016-06-18] MEDS: SODIUM CHLORIDE 0.9% FLUSH 5 ML FLUSH FLUSH SCH (07:49)
[2016-06-18 07:50] VITALS: BP 182/84; PULSE 56; RESP 20; TEMP 96.4; O2SAT 98
[2016-06-18 08:01] LABS: AUTOMATED NEUTROPHIL # 6.6 TH/MM3 (1.8-7.7); BASOPHIL % 0.4 % (0.0-2.0); EOSINOPHIL # 0.1 TH/MM3 (0-0.4); EOSINOPHIL % 0.7 % (0.0-4.0); MEAN CELL VOLUME 91.3 FL (80.0-100.0); MEAN CORPUSCULAR HEMOGLOBIN 30.1 PG (27.0-34.0); MONO % 36.5 % (0.0-8.0); NEUT % 54.4 % (16.0-70.0); RED BLOOD COUNT 2.96 MIL/MM3 (4.00-5.30); RED CELL DISTRIBUTION WIDTH 17.3 % (11.6-17.2); WHITE BLOOD COUNT 12.2 TH/MM3 (4.0-11.0)
[2016-06-18 08:20] LABS: POTASSIUM 3.7 MEQ/L (3.5-5.1)
[2016-06-18 09:00] LABS: HEMO FLAGS AUTO DIFF
[2016-06-18] MEDS ORDERED: LISINOPRIL 10 MG TAB PO SCH (09:00)
[2016-06-18 09:14] LABS: BANDS 1 % (0-6); MYELOCYTES 1 % (0-0); NEUTROPHIL # MANUAL DIFF 6.1 TH/MM3 (1.8-7.7); PLATELET ESTIMATE SMEAR LOW (NORMAL); PLATELET MORPHOLOGY ENLARGED (NORMAL); POLYS (SEG NEUTROPHILS) 48 % (16-70); SCAN/DIFF FINAL DIFF MANUAL; WBC DIFF SAMPLE 100
[2016-06-18 09:15] LABS: ACANTHOCYTES OCC (NORMAL); HELMET CELLS 1+ (NORMAL); KERATOCYTES OCC (NORMAL)
[2016-06-18 09:57] LABS: HDL CHOLESTEROL 18.9 MG/DL (40.0-60.0)
[2016-06-18 10:27] LABS: ALBUMIN SPE 3.1 GM/DL (3.50-5.00); ALPHA 1 GLOBULIN 0.24 GM/DL (0.11-0.29); ALPHA 2 GLOBULIN 0.54 GM/DL (0.22-1.00); BETA GLOBULINS (SPE) 0.5 GM/DL (0.53-1.03)
[2016-06-18] MEDS: ALPRAZolam 0.5 MG TAB PO PRN (10:35)
[2016-06-18 11:50] VITALS: BP 169/82; PULSE 63; RESP 20; TEMP 96.1; O2SAT 98
[2016-06-18] MEDS ORDERED: PRED10 PO (11:51)
[2016-06-18] MEDS ORDERED: HYDR25TA35 PO (11:51)
[2016-06-18] MEDS ORDERED: LISI10TA3 PO (11:51)
[2016-06-18] MEDS ORDERED: ALPR.5 PO (11:51)
[2016-06-18] MEDS ORDERED: FOLI1TAB4 PO (11:51)
[2016-06-18] MEDS ORDERED: FURO20TA PO (11:51)
--- NOTE | 2016-06-18 11:55 | HHI.DCPOC ---
Discharge Care Plan Diagnosis: (1) Proteinuria (2) ARF (acute renal failure) (3) Crohns disease (4) Thrombocytopenia (5) Anemia (6) Myelodysplastic syndrome Goals to Promote Your Health * To prevent worsening of your condition and complications * To maintain your health at the optimal level Directions to Meet Your Goals Take your medications as prescribed Follow your dietary instruction Follow activity as directed Keep your appointments as scheduled Take your immunizations and boosters as scheduled If your symptoms worsen call your PCP, if no PCP go to Urgent Care Center or Emergency Room Smoking is Dangerous to Your Health. Avoid second hand smoke Call the 24-hour hour crisis hotline for domestic abuse at Chris Salcido DO Jun 18, 2016 11:55
--- NOTE | 2016-06-18 12:05 | HHI.DS ---
Discharge Summary Admission Date Jun 11, 2016 at 13:27 Discharge Date: Jun 18, 2016 Admitting Diagnosis Anemia, thrombocytopenia (1) Crohns disease ICD Code: K50.90 (2) Thrombocytopenia ICD Code: D69.6 (3) ARF (acute renal failure) ICD Code: N17.9 (4) Anemia ICD Code: D64.9 (5) Myelodysplastic syndrome ICD Code: D46.9 Diagnosis: Principal (6) Proteinuria ICD Code: R80.9 Procedures None in this Hospital but had bone marrow biopsy prior to coming to [place] Brief History - From Admission 66-year-old female with a medical history significant for Crohn's disease, thrombocytopenia, hypothyroidism who was initially admitted to [facility] and transferred to [place] due to insurance issue. The patient is seen in her room. In the background, she initially presented to [facility] due to swelling of bilateral upper and lower extremities. She saw her primary care physician prior to going to the emergency room and she was given Lasix and prednisone with no improvement in her symptoms. Apparently in the emergency room at the outside hospital, she was found to have a hemoglobin of 6.5, platelet counts of 6000 and a creatinine of 1.69. The patient was admitted for treatment and was followed by hematology, nephrology and GI. She reports that her anemia is new for her. She reports a history of thrombocytopenia, there has been mention of ITP in the past. She denies any recent bleeding. She underwent a bone marrow biopsy yesterday. Currently the patient states she is feeling well otherwise. Swelling has completely resolved. She is inquiring about when she will be able to go home. CBC/BMP: 06/18/16 0714 06/18/16 0714 Significant Findings Laboratory Tests Test 06/15/16 06/16/16 06/17/16 06/17/16 15:34 06:15 06:51 11:05 Urine Turbidity HAZY (CLEAR) Urine Protein 300 mg/dL (NEG-TRACE) Urine Occult Blood MOD (NEG) Urine Leukocyte Esterase MOD (NEG) Urine RBC 26 /hpf (0-3) Urine WBC 35 /hpf (0-5) Urine Mucus FEW /lpf (OCC) Red Blood Count 3.19 MIL/MM3 3.09 MIL/MM3 (4.00-5.30) (4.00-5.30) Hemoglobin 9.6 GM/DL 9.2 GM/DL (11.6-15.3) (11.6-15.3) Hematocrit 29.4 % 28.1 % (35.0-46.0) (35.0-46.0) Red Cell Distribution Width 17.4 % 17.6 % (11.6-17.2) (11.6-17.2) Mean Platelet Volume 11.5 FL (7.0-11.0) Lymphocytes (%) (Auto) 7.1 % (9.0-44.0) Monocytes (%) (Auto) 32.2 % (0.0-8.0) Lymphocytes # (Auto) 0.7 TH/MM3 (1.0-4.8) Monocytes # (Auto) 3.0 TH/MM3 (0-0.9) Platelet Estimate LOW (NORMAL) Platelet Morphology Comment ENLARGED (NORMAL) Acanthocytes OCC (NORMAL) Chloride Level 110 MEQ/L 109 MEQ/L (98-107) (98-107) Carbon Dioxide Level 19.9 MEQ/L (21.0-32.0) Blood Urea Nitrogen 35 MG/DL (7-18) 37 MG/DL (7-18) Creatinine 1.24 MG/DL 1.18 MG/DL (0.50-1.00) (0.50-1.00) Estimat Glomerular Filtration 44 ML/MIN (>89) 46 ML/MIN (>89) Rate Random Glucose 115 MG/DL 112 MG/DL (74-106) (74-106) Calcium Level 8.2 MG/DL (8.5-10.1) White Blood Count 11.9 TH/MM3 (4.0-11.0) Urine Random Creatinine 18 MG/DL (27-300) Urine Microalbumin/Creatinine 2789 MG/G CRE Ratio (0-30) Test 06/17/16 06/18/16 11:53 07:14 Complement C3 44 MG/DL (90-180) Complement C4 6 MG/DL (10-40) Total Protein 5.6 GM/DL (6.0-7.6) Albumin 3.10 GM/DL (3.50-5.00) Albumin/Globulin Ratio 1.24 (1.39-2.23) Beta Globulins 0.50 GM/DL (0.53-1.03) White Blood Count 12.2 TH/MM3 (4.0-11.0) Red Blood Count 2.96 MIL/MM3 (4.00-5.30) Hemoglobin 8.9 GM/DL (11.6-15.3) Hematocrit 27.0 % (35.0-46.0) Red Cell Distribution Width 17.3 % (11.6-17.2) Mean Platelet Volume 11.1 FL (7.0-11.0) Lymphocytes (%) (Auto) 8.0 % (9.0-44.0) Monocytes (%) (Auto) 36.5 % (0.0-8.0) Monocytes # (Auto) 4.4 TH/MM3 (0-0.9) Monocytes % 41 % (0-8) Myelocytes 1 % (0-0) Platelet Estimate LOW (NORMAL) Platelet Morphology Comment ENLARGED (NORMAL) Helmet Cells 1+ (NORMAL) Acanthocytes OCC (NORMAL) Keratocytes OCC (NORMAL) Chloride Level 108 MEQ/L (98-107) Blood Urea Nitrogen 34 MG/DL (7-18) Creatinine 1.05 MG/DL (0.50-1.00) Estimat Glomerular Filtration 53 ML/MIN (>89) Rate Triglycerides Level 162 MG/DL (42-150) Cholesterol Level 115 MG/DL (120-200) HDL Cholesterol 18.9 MG/DL (40.0-60.0) Imaging Last Impressions Abdomen MRI 06/13/16 0000 Signed Impressions: Service Date/Time: Monday, June 13, 2016 09:43 - CONCLUSION: 1. 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 2. 5 mm hepatic cyst left lobe liver. 3. Small amount of sludge in the gallbladder. 4. Bilateral parapelvic renal cysts. 5. Diffuse anasarca. Bharat Damon MD Abdomen Ultrasound 06/12/16 0000 Signed Impressions: Service Date/Time: May 09:51 - CONCLUSION: 1. Splenomegaly. Additionally, there is a partially solid and cystic appearing mass in the central spleen measuring up to 5 cm. Differential diagnostic considerations are broad. Suggest correlating with any prior imaging studies that could determine chronicity of this finding. Although most incidentally detected splenic lesions are benign, given the splenomegaly and the appearance is ideally should be further characterized with MRI with and without intravenous contrast at some point if not already performed. 2. Small bilateral pleural pleural effusions and trace ascites in the upper abdomen. 3. Mild left hydronephrosis from uncertain etiology. Charli Roman MD PE at Discharge GENERAL: This is a well-nourished, well-developed patient, in no apparent distress. CARDIOVASCULAR: Normal rate and regular rhythm without murmurs, gallops, or rubs. RESPIRATORY: Good respiratory efforts. Breath sounds equal and clear to auscultation bilaterally. GASTROINTESTINAL: Abdomen soft, non-tender, non-distended. Normal active bowel sounds MUSCULOSKELETAL: TR bilateral lower extremity edema. 5 out of 5 muscle strength throughout NEURO: Alert & Oriented x4 to person, place, time, situation. Moves all ext x4 PSYCH: Appropriate mood and affect. Pt update on day of discharge The patient was looking forward to going home. She had questions which were answered. She said she will follow up with her doctors and will keep an eye on her blood pressure. Discussed with nursing. Hospital Course MDS Oncology was consulted. The patient was transfused 2 units of PRBC and 1 unit of platelets at the outside hospital. She was continued on prednisone. A bone marrow biopsy was done on 06/10/16 at the outside hospital. Results consistent with MDS. She will follow up with hematology as an outpt. She will continue prednisone 30 mg BID. Crohn's disease GI consult reviewed. Patient previously has been on mesalamine but that was discontinued due to cost. She has been on sulfasalazine. She requested to be restarted on mesalamine here which was preferred by her GI doctor. She will continue mesalamine 1000mg 4 times a day. Hemoccult from the outside hospital has been negative. This has been reordered here to ensure no GI bleeding. 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 Acute renal failure Nephrology was consulted. Urinalysis showed proteinuria. Renal function improved. She was started on Lasix for lower extremity edema. She was also started on lisinopril. She will follow up with nephrology as an outpt. She will have a repeat BMP in 3-5 days. Hypertension She was started on hydralazine 25 mg every 8 hours and lisinopril 20 mg daily. She received clonidine when necessary. She said she will check her blood pressure regularly upon discharge. Splenomegaly Abdominal ultrasound here revealed a 5 cm cystic mass. MRI revealed a hemangioma. She will have outpt follow up. Pt Condition on Discharge: Stable Discharge Disposition: Discharge Home Discharge Time: > 30 minutes Discharge Instructions DIET: Follow Instructions for: As Tolerated, No Restrictions Activities you can perform: Weight Bearing as Angelica Follow up Referrals: Appointment for Follow Up - 1 Week with PCP Gastroenterology - 1 Week Hematology - 1 Week with Farrukh Eagle MD Nephrology - [address] Dillon New Orders: BASIC METABOLIC PROF - 3-5 Days New Medications: Alprazolam (Xanax) 0.5 Mg Tab 0.5 MG PO Q6H PRN ANXIETY #20 TAB Folic Acid (Folate) 1 Mg Tab 1 MG PO DAILY vitamin #30 TAB Furosemide (Furosemide) 20 Mg Tab 20 MG PO BID Leg swelling #60 TAB Hydralazine (Hydralazine) 25 Mg Tab 25 MG PO Q8HR Blood Pressure Management #90 TAB Lisinopril (Lisinopril) 10 Mg Tab 20 MG PO DAILY Blood Pressure Management #30 TAB Mesalamine ER (Pentasa) 250 Mg Caper 1000 MG PO QID #120 CAP Pantoprazole (Pantoprazole) 40 Mg Tab 40 MG PO DAILY #30 TAB Prednisone (Prednisone) 10 Mg Tab 30 MG PO BID MDS #30 TAB Continued Medications: Levothyroxine (Levothyroxine) 50 Mcg Tab 50 MCG PO DAILY Thyroid #30 Ref 0 TAB Oxycodone-Acetaminophen (Percocet) 5-325 mg Tab 1 TAB PO Q4H PRN PAIN Ref 0 TAB Valacyclovir (Valacyclovir) 500 Mg Tab 500 MG PO DAILY PRN Mgmt Viral Infection #30 Ref 0 TAB Zolpidem (Zolpidem) 5 Mg Tab 5 MG PO HS PRN INSOMNIA Ref 0 TAB Discontinued Medications: Furosemide (Furosemide) 20 Mg Tab 10 MG PO DAILY #30 Ref 0 TAB Prednisone (Prednisone) 20 Mg Tab 20 MG PO TID Ref 0 TAB Sulfasalazine (Sulfasalazine) 500 Mg Tab 500 MG PO Q6H #120 Ref 0 TAB Chris Salcido DO Jun 18, 2016 12:05
--- NOTE | 2016-06-18 12:25 | HHI.NPPN ---
Subjective General Problems: Edema Renal Failure: Acute Interval History Renal function is better. No acute concerns from the pt. (Jessica Tidwell) Review of Systems Cardiovascular Cardiac: Edema (Jessica Tidwell) Objective Data Data 06/17/16 06/18/16 19:00 07:00 Intake Total 960 ml 500 ml Balance 960 ml 500 ml Intake Oral 960 ml 500 ml # Voids 3 3 # Bowel Movements 0 Vital Signs Date Time Temp Pulse Resp B/P Pulse Ox O2 Delivery O2 Flow Rate FiO2 06/18/16 11:50 96.1 63 20 169/82 98 06/18/16 07:50 96.4 56 20 182/84 98 06/18/16 04:42 96.9 64 16 168/88 94 06/18/16 00:00 97.0 64 16 162/82 96 06/17/16 20:15 158/80 06/17/16 20:00 97.6 63 18 197/93 99 06/17/16 16:00 97.7 54 18 156/83 97 (Jessica Tidwell) -: 06/18/16 0714 06/18/16 0714 Physical Exam General Appearance: Well Developed, Well Nourished, No Acute Distress (Jessica Tidwell) Throat Throat Exam: Oral Mucosa [place] & Moist (Jessica Tidwell) Pulmonary Resp Exam: Clear Bilaterally, Breath Sounds Equal (Jessica Tidwell) Cardiology CV Exam: Regular, Normal Sinus Rhythm (Jessica Tidwell) Gastrointestinal/Abdomen GI Exam: Soft, Non-Tender (Jessica Tidwell) Genitourinary Exam: Clear Urine (Jessica Tidwell) Musculoskeletal MS Exam: Joints Intact, Normal Gait, Normal Tone (Jessica Tidwell) Integumentary Skin Exam: Clear, Warm, Dry (Jessica Tidwell) Extremeties Extremities Exam: Pedal Pulses Palpable, Moderate Edema (Jessica Tidwell) Neurologic Neuro Exam: Alert, Awake, Oriented, Speech Clear, Moving All Extremities ( Jessica Tidwell) Psychiatric Psych Exam: Appropriate Responses (Jessica Tidwell) Assessment/Plan Discussed Condition With: Patient Assessment Summary: Proteinuria Problem List: (1) ARF (acute renal failure) Plan: improving stable renal function Initially due to overdiuresis at [facility] that corrected on Lasix BID for edema, monitor effect she has proteinuria in non diabetic pt, see discussion below stable for discharge, we will follow her outpatient (2) Proteinuria Plan: bone marrow biopsy proven MDS with nearly 3 g proteinuria and preserved renal function this explains the lower extremity edema she was started on lisinopril we will follow this outpatient (3) Thrombocytopenia Plan: + MDS, hematology has signed off bone marrow biopsy results received from transferring facility (Jessica Tidwell) Plan patient was seen and examined. She has proteinuria. Etiology is unclear. She has low complement levels. Patient needs a renal biopsy at some point, will need improvement in platelet count. (Prabhu Dillon MD) Jessica Tidwell Jun 18, 2016 12:24 Prabhu Dillon MD Jun 19, 2016 10:42
[2016-06-18 13:43] LABS: ANA SCREEN POS (NEG)
[2016-06-18 15:52] LABS: MYELOPEROXIDASE LESS THAN 1.0 AI (<1.0); PROTEINASE-3 LESS THAN 1.0 AI (<1.0)
[2016-06-20 19:53] LABS: VWF PROTEASE INH LESS THAN 0.4 BEU (<0.4)
== END 2016-06-18 14:31 | disposition home or self-care (01) | DRG 813 ==
LOC: HOCB 13:27 → OBSVTOIN 13:27 → HOCB 13:43
PROVIDERS: ADMIT Hospitalist; ATTEND Hospitalist
DX: D69.6 Thrombocytopenia, unspecified (principal); N17.9 Acute kidney failure, unspecified; D58.9 Hereditary hemolytic anemia, unspecified; K50.90 Crohn's disease, unspecified, without complications; E87.5 Hyperkalemia; I15.8 Other secondary hypertension; R16.1 Splenomegaly, not elsewhere classified; D46.9 Myelodysplastic syndrome, unspecified; D64.9 Anemia, unspecified; E03.9 Hypothyroidism, unspecified; M19.90 Unspecified osteoarthritis, unspecified site
CPT/HCPCS: 74183; 76700; 80048; 80053; 80061; 80076; 81001; 82043; 82272; 82607; 82747; 83010; 83540; 83550; 83615; 84165; 84443; 84466; 85007; 85025; 85027; 85060; 85335; 85384; 85397; 85610; 85730; 86021; 86038; 86039; 86077; 86160; 86317; 86803; 86860; 86870; 86880; 86900; 86901; 87086; 87340; A9579; J2930; J7512

== ENCOUNTER 2016-07-18 08:59 | Emergency (ER) | payer OTHER ==
[~2016-07-18] VITALS: Ht 170.2 cm; Wt 70.0 kg
[~2016-07-18 08:59] MED LIST: ALPR.5 PO; FOLI1TAB4 PO; FURO20TA PO; HYDR25TA35 PO; LEVO50TA4 PO; LISI10TA3 PO; MESA250 PO; PANT40TA3 PO; PERC5TAB12 PO; PRED10 PO; VALA500T PO; ZOLP5TAB3 PO
[2016-07-18 09:01] VITALS: BP 158/78; PULSE 94; RESP 20; TEMP 98.2; O2SAT 97
--- NOTE | 2016-07-18 09:21 | PD ---
Physical Exam Date Seen by Provider: Jul 18, 2016 Time Seen by Provider: 09:16 Narrative Pt is a 66 year old female presenting to the ED for evaluation of dysuria, fevers, back pain. Pt reports foamy urine. Pt states her temp was 102 last night. Pt has not taken any acetaminophen or ibuprofen this morning. Pt states she has gained 5 pounds over the last few days. She states she is on prednisone and has some degree of peripheral edema. Pt states her legs are more painful. She also reports SOB. Pt in no acute distress, VSS. EKG, CXR ordered. Pt awaiting bed placement. Data Data Last Documented VS Vital Signs Date Time Temp Pulse Resp B/P Pulse Ox O2 Delivery O2 Flow Rate FiO2 07/18/16 09:01 98.2 94 20 158/78 97 Room Air [facility] Supervised Visit with DIEGO: Renae Munguia Jul 18, 2016 09:21
--- NOTE | 2016-07-18 09:54 | RADRPT ---
EXAM DATE/TIME: 07/18/2016 09:42 [place] COMPARISON: No previous studies available for comparison. INDICATIONS : Short of breath, recent weight gain and change in urination. MEDICAL HISTORY : Hypertension. Arthritis. Crohn disease. Inflammatory bowel disease. Renal failure.Anemia. Thrombocyto penia SURGICAL HISTORY : None. Renal failure a couple weeks ago.Tonsillectomy. Hiatal hernia repair. Face lift. ENCOUNTER: Initial ACUITY: 1 day PAIN SCORE: 0/10 LOCATION: Bilateral chest FINDINGS: PA and lateral views of the chest demonstrate the lungs to be symmetrically aerated without evidence of mass, infiltrate or effusion. The cardiomediastinal contours are unremarkable. Osseous structure s are intact. CONCLUSION: No acute disease. Jeff Herrmann MD FACR on July 18, 2016 at 9:44 Board Certified Radiologist. This report was verified electronically.
[2016-07-18] MEDS ORDERED: MESA1TAB2 PO (11:23)
[2016-07-18] MEDS ORDERED: ZOFR4TAB PO (11:23)
[2016-07-18] MEDS ORDERED: PRED10 PO (11:23)
[2016-07-18] MEDS ORDERED: FURO20TA PO (11:23)
[2016-07-18] MEDS ORDERED: CALCCHW9 CHEW (11:23)
[2016-07-18] MEDS ORDERED: SODIUM CHLORIDE 0.9% FLUSH 10 ML FLUSH IVF PRN (11:30)
[2016-07-18 12:00] VITALS: BP 145/68; PULSE 70; RESP 18; O2SAT 98
[2016-07-18 12:06] LABS: HEMATOCRIT 29.6 % (35.0-46.0); MEAN CELL VOLUME 93.2 FL (80.0-100.0); MEAN CORPUSCULAR HEMOGLOBIN 31.3 PG (27.0-34.0); MEAN CORPUSCULAR HGB CONC 33.6 % (32.0-36.0); RED BLOOD COUNT 3.18 MIL/MM3 (4.00-5.30); WHITE BLOOD COUNT 5.2 TH/MM3 (4.0-11.0)
[2016-07-18 12:10] LABS: BACTERIA, URINE RARE /hpf; BLOOD, URINE SMALL (NEG); COMMENT (UR) CULTURE INDICATED; CULTURE IF INDICATED CULTURE INDICATED; GLUCOSE,URINE NEG (NEG); KETONE, URINE NEG (NEG); MUCUS URINE FEW /lpf (OCC); NITRITE,URINE NEG (NEG); SQUAMOUS EPITHELIAL CELL URINE 1 /hpf (0-5); TRANSITIONAL EPI CELLS, URINE <1 /hpf; URINE COLOR YELLOW (YELLW/STRAW)
[2016-07-18 12:13] LABS: APTT (PATIENT) 30.1 SEC (24.3-30.1); PROTHROMBIN TIME - PATIENT 11.3 SEC (9.8-11.6)
[2016-07-18 12:15] LABS: BICARBONATE 25.9 MEQ/L (21.0-32.0); MAGNESIUM 1.8 MG/DL (1.5-2.5)
[2016-07-18 12:28] LABS: HEMO FLAGS AUTO DIFF
[2016-07-18 12:38] LABS: BANDS 1 % (0-6); NEUTROPHIL # MANUAL DIFF 2.3 TH/MM3 (1.8-7.7); POLYS (SEG NEUTROPHILS) 44 % (16-70); WBC DIFF SAMPLE 100
[2016-07-18 12:41] LABS: PLATELET ESTIMATE SMEAR LOW (NORMAL); PLATELET MORPHOLOGY ENLARGED (NORMAL); TOXIC GRANULATION 2+ (NORMAL)
[2016-07-18 12:42] LABS: DOHLE BODIES PRESENT (NONE SEEN); SCAN/DIFF FINAL DIFF MANUAL
--- NOTE | 2016-07-18 12:49 | PD ---
HPI Chief Complaint: Flank pain Time Seen by Provider: 12:48 Travel History International Travel<30 days: No Contact w/Intl Traveler<30days: No Traveled to known affect area: No History of Present Illness HPI 66-year-old female presents to emergency department for evaluation of burning with urination, frequency, back pain, and a fever that spiked 102 yesterday. Patient has had frothy urine. She states that she has also had lower extremity swelling which has been since she started taking steroids for thrombocytopenia and hemolytic anemia. Patient denies any chest or tightness. No difficulty breathing. She states she did have some shortness of breath last week this has resolved. No abdominal pain. No nausea or vomiting. No other symptoms to report. PFSH Past Medical History Anemia: Yes (thrombocytopenia, anemia) Arthritis: Yes Heart Rhythm Problems: No Cardiovascular Problems: Yes High Cholesterol: No Chemotherapy: No Chest Pain: No Congestive Heart Failure: No Cerebrovascular Accident: No Gastrointestinal Disorders: Yes Genitourinary: Yes Hypertension: Yes (due to prednisone) Immune Disorder: No Kidney Stones: No Medical other: Yes (myelodysplastic syndrome) Musculoskeletal: Yes Neurologic: No Psychiatric: No Reproductive: No Respiratory: No Migraines: No Renal Failure: Yes (acute renal failure) Seizures: No Sickle Cell Disease: No Past Surgical History Abdominal Surgery: Yes AICD: No Cardiac Surgery: No Ear Surgery: No Endocrine Surgery: No Eye Surgery: No Oral Surgery: No Pacemaker: No Thoracic Surgery: No Other Surgery: Yes (face lift, tonsilectomy, hiatal hernia repair) Social History Alcohol Use: No Tobacco Use: No Substance Use: No Allergies-Medications (Allergen,Severity, Reaction): Coded Allergies: Augmentin (Verified Allergy, Intermediate, 07/18/16) Rash Cipro (Verified Allergy, Intermediate, 07/18/16) Rash Reported Meds & Prescriptions Reported Meds & Active Scripts Active Keflex (Cephalexin) 500 Mg Cap 500 Mg PO Q12H 7 Days Hydralazine (Hydralazine HCl) 25 Mg Tab 25 Mg PO Q8HR Folate (Folic Acid) 1 Mg Tab 1 Mg PO DAILY Xanax (Alprazolam) 0.5 Mg Tab 0.5 Mg PO Q6H PRN Pantoprazole (Pantoprazole Sodium) 40 Mg Tab 40 Mg PO DAILY Reported Furosemide 20 Mg Tab 10 Mg PO DAILY Calcium 1200 (Calcium Carbonate-Vitamin D W/Minerals) 1,200-1,000 Mg-Unit Chew 1 Tab CHEW DAILY Zofran (Ondansetron HCl) 4 Mg Tab 4 Mg PO Q6HR PRN Mesalamine DR (Mesalamine) 800 Mg Tab 800 Mg PO TID Prednisone 10 Mg Tab 10 Mg PO DAILY Valacyclovir (Valacyclovir HCl) 500 Mg Tab 500 Mg PO BID PRN Levothyroxine (Levothyroxine Sodium) 50 Mcg Tab 50 Mcg PO DAILY Zolpidem (Zolpidem Tartrate) 5 Mg Tab 5 Mg PO HS PRN Review of Systems Except as stated in HPI: all other systems reviewed are Neg Physical Exam Narrative GENERAL: Well-nourished female patient, in no acute distress SKIN: Focused skin assessment warm/dry. HEAD: Atraumatic. Normocephalic. EYES: Pupils equal and round. No scleral icterus. No injection or drainage. ENT: No nasal bleeding or discharge. Mucous membranes pink and moist. NECK: Trachea midline. No JVD. CARDIOVASCULAR: Regular rate and rhythm. No murmur appreciated. RESPIRATORY: No accessory muscle use. Clear to auscultation. Breath sounds equal bilaterally. GASTROINTESTINAL: Abdomen soft, non-tender, nondistended. Hepatic and splenic margins not palpable. 8 CVA tenderness. MUSCULOSKELETAL: No obvious deformities. No clubbing. No cyanosis. 2+ bilateral lower extremity edema. NEUROLOGICAL: Awake and alert. No obvious cranial nerve deficits. Motor grossly within normal limits. Normal speech. PSYCHIATRIC: Appropriate mood and affect; insight and judgment normal. Data Data Last Documented VS Vital Signs Date Time Temp Pulse Resp B/P Pulse Ox O2 Delivery O2 Flow Rate FiO2 07/18/16 13:28 79 18 131/65 98 07/18/16 12:00 Room Air 07/18/16 09:01 98.2 Orders Electrocardiogram (07/18/16 ) Chest, Pa & Lat (07/18/16 ) Basic Metabolic Panel (Bmp) (07/18/16 11:18) B-Type Natriuretic Peptide (07/18/16 11:18) Ckmb (Isoenzyme) Profile (07/18/16 11:18) Complete Blood Count With Diff (07/18/16 11:18) Magnesium (Mg) (07/18/16 11:18) Prothrombin Time / Inr (Pt) (07/18/16 11:18) Act Partial Throm Time (Ptt) (07/18/16 11:18) Troponin I (07/18/16 11:18) Ecg Monitoring (07/18/16 11:18) Bilateral Bp Monitoring (07/18/16 11:18) Iv Access Insert/Monitor (07/18/16 11:18) Oximetry (07/18/16 11:18) Oxygen Administration (07/18/16 11:18) Sodium Chloride 0.9% Flush (Ns Flush) (07/18/16 11:30) Urinalysis - C+S If Indicated (07/18/16 11:18) Urine Culture (07/18/16 11:52) Labs Laboratory Tests Test 07/18/16 07/18/16 11:34 11:52 White Blood Count 5.2 TH/MM3 Red Blood Count 3.18 MIL/MM3 Hemoglobin 10.0 GM/DL Hematocrit 29.6 % Mean Corpuscular Volume 93.2 FL Mean Corpuscular Hemoglobin 31.3 PG Mean Corpuscular Hemoglobin 33.6 % Concent Red Cell Distribution Width 17.0 % Platelet Count TH/MM3 Mean Platelet Volume 15.9 FL Neutrophils (%) (Auto) % Lymphocytes (%) (Auto) % Monocytes (%) (Auto) % Eosinophils (%) (Auto) % Basophils (%) (Auto) % Neutrophils # (Auto) TH/MM3 Lymphocytes # (Auto) TH/MM3 Monocytes # (Auto) TH/MM3 Eosinophils # (Auto) TH/MM3 Basophils # (Auto) TH/MM3 CBC Comment AUTO DIFF Differential Total Cells 100 Counted Neutrophils % (Manual) 44 % Band Neutrophils % 1 % Lymphocytes % 18 % Monocytes % 37 % Neutrophils # (Manual) 2.3 TH/MM3 Differential Comment FINAL DIFF MANUAL Atypical Lymphocytes % Toxic Granulation 2+ Dohle Bodies PRESENT Platelet Estimate LOW Platelet Morphology Comment ENLARGED Prothrombin Time 11.3 SEC Prothromb Time International 1.0 RATIO Ratio Activated Partial 30.1 SEC Thromboplast Time Sodium Level 139 MEQ/L Potassium Level 4.0 MEQ/L Chloride Level 105 MEQ/L Carbon Dioxide Level 25.9 MEQ/L Anion Gap 8 MEQ/L Blood Urea Nitrogen 25 MG/DL Creatinine 0.85 MG/DL Estimat Glomerular Filtration 67 ML/MIN Rate Random Glucose 123 MG/DL Calcium Level 8.4 MG/DL Magnesium Level 1.8 MG/DL Total Creatine Kinase 11 U/L Troponin I 0.02 NG/ML B-Type Natriuretic Peptide 74 PG/ML Urine Color YELLOW Urine Turbidity HAZY Urine pH 5.0 Urine Specific [place] 1.012 Urine Protein 30 mg/dL Urine Glucose (UA) NEG mg/dL Urine Ketones NEG mg/dL Urine Occult Blood SMALL Urine Nitrite NEG Urine Bilirubin NEG Urine Urobilinogen LESS THAN 2.0 MG/DL Urine Leukocyte Esterase LARGE Urine RBC 7 /hpf Urine WBC 44 /hpf Urine Squamous Epithelial 1 /hpf Cells Urine Transitional Epithelial <1 /hpf Cells Urine Amorphous Sediment RARE Urine Bacteria RARE /hpf Urine Mucus FEW /lpf Microscopic Urinalysis Comment CULTURE INDICATED MDM Medical Decision Making Medical Screen Exam Complete: Yes Emergency Medical Condition: Yes Medical Record Reviewed: Yes Differential Diagnosis UTI versus renal calculi versus muscle strain versus discogenic pain versus CHF versus fluid retention Narrative Course 66-year-old female presents to the emergency department for evaluation. Patient appears without distress. CBC is without acute concern. BUN is 25, creatinine 0.85, GFR 67. Calcium is 8.4. Troponin 0.02. BNP is 74. Urinalysis is hazy with 30 proteinuria, small blood, large leukocyte esterase, 7 RBC, 44 WBC, rare bacteria, few mucus. Culture is indicated. Discussed the patient physician Dr. Rodney who has also reviewed the labs. Patient was started on oral antibiotics for UTI. She is encouraged follow-up with primary care provider and return immediately if any acute worsening symptoms. Diagnosis Primary Impression: UTI (urinary tract infection) Qualified Code: N39.0 - Urinary tract infection without hematuria, site unspecified Additional Impressions: Thrombocytopenia Lower extremity edema Qualified Code: R60.0 - Bilateral edema of lower extremity Referrals: Primary Care Physician Patient Instructions: General Instructions, Urinary Tract Infection in Women ( ED) Additional Instructions: Maintain adequate oral hydration Continue medication as already prescribed Follow-up with her primary care provider Return immediately with any acute worsening symptoms Med/Other Pt SpecificInfo: Prescription(s) given Scripts Cephalexin (Keflex)500 Mg [id number] Mg PO Q12H 7 Days Ref 0 Prov:Ester Moulton 07/18/16 Disposition: 01 DISCHARGE HOME Condition: Stable Ester Moulton Jul 18, 2016 12:49
[2016-07-18] MEDS ORDERED: CEPH-460 PO (12:51)
[2016-07-18 13:28] VITALS: BP 131/65
--- NOTE | 2016-07-18 16:25 | EKG ---
Date Performed: 07/18/2016 Time Performed: 09:58:01 PTAGE: 66 years EKG: Sinus rhythm WITH OCCASIONAL SUPRAVENTRICULAR PREMATURE COMPLEXES BORDERLINE ECG NO PREVIOUS TRACING DOCTOR: Leobardo Gibbons Interpretating Date/Time 07/18/2016 16:22:03
== END 2016-07-18 13:38 | disposition home or self-care (01) ==
LOC: NEPE 08:59
DX: N39.0 Urinary tract infection, site not specified (principal); D69.6 Thrombocytopenia, unspecified; R60.0 Localized edema; R06.02 Shortness of breath; Z79.899 Other long term (current) drug therapy
CPT/HCPCS: 71020; 80048; 81001; 82550; 83735; 83880; 84484; 85007; 85027; 85610; 85730; 87086; 93005